=== PATIENT | male | born 1960 | race African-American/Black ===

== ENCOUNTER 2017-08-30 09:30 | Inpatient (IN) ==
[2017-08-30] MEDS ORDERED: HYDROmorphone 2 MG/1 ML VIAL IV STA ×2 (09:54→11:05)
[2017-08-30] MEDS ORDERED: ONDANSETRON 4 MG/2 ML VIAL IV STA (09:54)
[2017-08-30] MEDS ORDERED: ONDANSETRON 4 MG/2 ML VIAL ONE (10:00)
[2017-08-30] MEDS ORDERED: HYDROmorphone 2 MG/1 ML VIAL ONE (10:01)
[2017-08-30] MEDS: SODIUM CHLORIDE 0.9% 1,000 ML IV SCH ×4 (10:04→21:52)
[2017-08-30 10:35] LABS: Basophils % 0.3 % (0.0-0.8); Eosinophils % 0.3 % (0.00-10.9); Hematocrit 27.2 VOL% (42.0-52.0); Hemoglobin 7.9 GM/DL (14.0-18.0); Immature Granulocytes % 0.9 %; Immature Granulocytes Absolute 0.07 #; Lymphocytes # 1.8 10*3/uL (1.4-4.0); Lymphocytes % 22.7 % (21.2-54.2); Mean Corpuscular Hemoglobin 26 PG (27-34); Mean Corpuscular Volume 88.3 FL (87-102); Monocytes # 0.4 10*3/uL (0.11-0.8); Monocytes % 5.6 % (1.7-12.7); NRBC # 0.02 10*3/uL; Neutrophils # 5.5 10*3/uL (1.4-7.4); Neutrophils % 70.2 % (38.7-73.9); Platelet Count 367 T/CUMM (130-400); Red Blood Count 3.08 MC/CUMM (3.8-5.5); White Blood Count 7.8 T/CUMM (4-12)
[2017-08-30 10:42] LABS: PT Patient Result 10.5 SECS; Partial Thromboplastin Time 22.5 SECS (0-40)
[2017-08-30 10:49] LABS: Apearance,Urine CLEAR (Clear); Bilirubin,Urine Negative (Negative); Blood, Urine Small mg/dL (Negative); Glucose,Urine (UA) 50 mg/dL (Negative); Ketones,Urine Negative (Negative); Mucus,Urine Occasional /LPF (Occasional); Nitrite,Urine Negative (Negative); Protein,Urine >=500 MG/DL; RBC,Urine 5 /HPF (0-4); Urine Color Yellow (Yellow); Urine Specific Gravity 1.023 (1.001-1.035); WBC,Urine 1 /HPF (0-6)
[2017-08-30 11:02] LABS: Hypochromasia 1+; Microcytosis 1+; Spherocytes Slight
[2017-08-30 11:03] LABS: Platelet Estimate Normal
[2017-08-30 11:04] LABS: Albumin 1.9 G/DL (3.4-5.0); Bilirubin,Total 0.4 MG/DL (0.2-1.0); Calcium 8.7 MG/DL (8.5-10.1); Potassium 3.9 MMOL/L (3.5-5.1); Total Protein 10.7 G/DL (6.4-8.3)
[2017-08-30] MEDS ORDERED: MAGNESIUM HYDROXIDE SUSP 30 ML UDCUP PO PRN ×2 (12:41→18:09)
[2017-08-30] MEDS ORDERED: DOCUSATE SODIUM 100 MG CAPSULE PO PRN (12:49)
[2017-08-30] MEDS ORDERED: ACETAMINOPHEN 325 MG TABLET PO PRN ×2 (12:49)
[2017-08-30] MEDS ORDERED: MORPHINE 2 MG/1 ML SYRINGE IV PRN (12:49)
[2017-08-30] MEDS ORDERED: guaiFENesin/DM ER 600-30 MG TABLET PO PRN (12:49)
[2017-08-30] MEDS ORDERED: ONDANSETRON 4 MG/2 ML VIAL IV PRN ×2 (12:49→20:24)
[2017-08-30] MEDS ORDERED: diphenhydrAMINE CAP 25 MG CAPSULE PO PRN (12:49)
[2017-08-30] MEDS ORDERED: GLUCAGON 1 MG VIAL IM PRN (13:02)
[2017-08-30] MEDS ORDERED: DEXTROSE 50% 25 GM/50 ML VIAL IV PRN (13:02)
[2017-08-30] MEDS: PANTOPRAZOLE 40 MG TABLET PO SCH (13:35)
[2017-08-30] MEDS ORDERED: ceFAZolin 2,000 MG in PREMIX 1 EACH IV ONE (15:00)
[2017-08-30 16:30] LABS: Total Protein 10.4 G/DL (6.4-8.3)
[2017-08-30 16:33] LABS: Immunoglobulin A < 31 MG/DL (70-400); Immunoglobulin G 5360 MG/DL (700-1600); Immunoglobulin M < 21 MG/DL (40-230)
[2017-08-30] MEDS: INSULIN LISPRO 100 UNIT/ML SUBCUT SCH (17:49)
[2017-08-30] MEDS ORDERED: PROMETHAZINE 25 MG/1 ML VIAL IM PRN (18:09)
[2017-08-30] MEDS ORDERED: BISACODYL 10 MG SUPP RECTAL PRN (18:09)
[2017-08-30] MEDS ORDERED: LACTULOSE 20 GM/30 ML UDCUP PO PRN (18:09)
[2017-08-30] MEDS ORDERED: MORPHINE 10 MG/1 ML VIAL IV PRN (18:15)
[2017-08-30] MEDS ORDERED: ceFAZolin 1,000 MG VIAL ONE (18:28)
[2017-08-30] MEDS ORDERED: SODIUM CHLORIDE 0.9% 1,000 ML IV PRN ×2 (19:42→22:59)
[2017-08-30] MEDS ORDERED: ROCURONIUM 100 MG/10 ML VIAL IV ONE (20:11)
[2017-08-30] MEDS ORDERED: SEVOFLURANE 1 UNIT/15 MINUTE INH ONE (20:11)
[2017-08-30] MEDS ORDERED: MIDAZOLAM 2 MG/2 ML VIAL ONE (20:11)
[2017-08-30] MEDS ORDERED: PHENYLEPHRINE 10 MG/1 ML VIAL IV ONE (20:11)
[2017-08-30] MEDS ORDERED: PROPOFOL 200 MG/20 ML VIAL IV ONE (20:11)
[2017-08-30] MEDS: HYDROmorphone 2 MG/1 ML VIAL IV PRN ×2 (20:28→20:37)
[2017-08-30] MEDS: ceFAZolin 1,000 MG in SYRINGE 1 EACH IV SCH (23:24)
[2017-08-31] MEDS: SODIUM CHLORIDE 0.9% 1,000 ML IV SCH ×5 (00:37→22:50)
[2017-08-31] MEDS: MORPHINE 2 MG/1 ML SYRINGE IV PRN ×2 (04:19→21:03)
[2017-08-31 08:26] LABS: Basophils % 0.2 % (0.0-0.8); Eosinophils % 0.2 % (0.00-10.9); Hematocrit 23.1 VOL% (42.0-52.0); Hemoglobin 7.1 GM/DL (14.0-18.0); Immature Granulocytes % 0.5 %; Immature Granulocytes Absolute 0.03 #; Lymphocytes # 0.9 10*3/uL (1.4-4.0); Mean Corpuscular HGB Conc 30.7 GM/DL (32-36); Mean Corpuscular Hemoglobin 25 PG (27-34); Mean Corpuscular Volume 81.9 FL (87-102); Mean Platelet Volume 9.2 FL (9.6-12.0); Monocytes # 0.5 10*3/uL (0.11-0.8); Monocytes % 7.4 % (1.7-12.7); NRBC # 0.03 10*3/uL; Neutrophils # 4.7 10*3/uL (1.4-7.4); Neutrophils % 77.7 % (38.7-73.9); Platelet Count 282 T/CUMM (130-400); Red Blood Count 2.82 MC/CUMM (3.8-5.5); Red Cell Distribution Width 24.8 % (9.3-17.3); White Blood Count 6.1 T/CUMM (4-12)
[2017-08-31 08:35] LABS: Immunoglobulin A (Chem) < 31 MG/DL (70-400); Immunoglobulin G (Chem) 5360 MG/DL (700-1600); Immunoglobulin M (Chem) < 21 MG/DL (40-230); Total Protein (Chem) 10.4 G/DL (6.4-8.3)
[2017-08-31 08:47] LABS: Calcium 8.2 MG/DL (8.5-10.1); Osmolality,Calculated 282.7 MOS/KG (273-304); Potassium 3.9 MMOL/L (3.5-5.1); Risk Ratio 5.61; Thyroid Stimulating Hormone 1.74 uIU/ml (0.358-3.74); VLDL CHOLESTEROL 35.6 MG/DL
[2017-08-31 09:04] LABS: Giant Platelets Few; Hypochromasia 1+; Lymphocytes 15 % (20-55); Microcytosis 1+; Nucleated Red Blood Cells 2 (0-5); Ovalocytes Slight; Platelet Estimate Adequate; Segmented Neutrophils 80 % (50-85); Total Cells Counted 100
[2017-08-31] MEDS: INSULIN LISPRO 100 UNIT/ML SUBCUT SCH ×2 (09:04→16:28)
[2017-08-31] MEDS: PANTOPRAZOLE 40 MG TABLET PO SCH (09:05)
[2017-08-31] MEDS: ceFAZolin 1,000 MG in SYRINGE 1 EACH IV SCH ×2 (09:07→17:32)
[2017-08-31] MEDS ORDERED: SODIUM CHLORIDE 0.9% 1,000 ML IV PRN (09:12)
[2017-08-31] MEDS ORDERED: MAGNESIUM SULF RIDER 2 GM in PREMIX 1 EACH IV ONE (09:12)
[2017-08-31 11:10] LABS: Immuno Free Light Chain Lambda 0.86 MG/DL (0.57-2.63); Immuno Free Light Chain Ratio 212.79 MG/DL (0.26-1.65)
[2017-08-31 11:15] LABS: Albumin (SPE) 2.4 G/DL (3.2-5.3); Albumin (SPE) Rel % 23.5 %; Alpha 1 (SPE) 0.5 G/DL (0.1-0.4); Alpha 1 (SPE) Rel % 4.4 %; Alpha 2 (SPE) 1.3 G/DL (0.4-1.0); Alpha 2 (SPE) Rel % 12.3 %; Beta (SPE) 1.2 G/DL (0.5-1.1); Beta (SPE) Rel % 11.5 %; Gamma (SPE) Rel % 48.3 %
[2017-08-31] MEDS ORDERED: ERGOCALCIFEROL 50,000 UNIT CAPSULE PO SCH (17:30)
[2017-08-31] MEDS: DUTASTERIDE 0.5 MG CAPSULE PO SCH (17:32)
[2017-08-31] MEDS: TAMSULOSIN 0.4 MG CAPSULE PO SCH (21:04)
[2017-09-01 07:38] LABS: Basophils % 0.1 % (0.0-0.8); Eosinophils % 0.4 % (0.00-10.9); Hematocrit 27.6 VOL% (42.0-52.0); Hemoglobin 8.5 GM/DL (14.0-18.0); Immature Granulocytes % 0.5 %; Immature Granulocytes Absolute 0.04 #; Lymphocytes # 1.1 10*3/uL (1.4-4.0); Lymphocytes % 14.2 % (21.2-54.2); Mean Corpuscular HGB Conc 30.8 GM/DL (32-36); Mean Corpuscular Hemoglobin 26 PG (27-34); Mean Corpuscular Volume 83.1 FL (87-102); Mean Platelet Volume 9.3 FL (9.6-12.0); Monocytes # 0.6 10*3/uL (0.11-0.8); Monocytes % 7.6 % (1.7-12.7); NRBC # 0.03 10*3/uL; Neutrophils # 5.8 10*3/uL (1.4-7.4); Neutrophils % 77.2 % (38.7-73.9); Platelet Count 288 T/CUMM (130-400); Red Blood Count 3.32 MC/CUMM (3.8-5.5); Red Cell Distribution Width 21.9 % (9.3-17.3); White Blood Count 7.5 T/CUMM (4-12)
[2017-09-01] MEDS: DUTASTERIDE 0.5 MG CAPSULE PO SCH (09:28)
[2017-09-01] MEDS: PANTOPRAZOLE 40 MG TABLET PO SCH (09:28)
[2017-09-01] MEDS: INSULIN LISPRO 100 UNIT/ML SUBCUT SCH ×2 (09:28→18:39)
[2017-09-01] MEDS ORDERED: TUBERCULIN SKIN TEST 0.1 ML SYRINGE INTRADERM ONE (19:27)
[2017-09-01] MEDS: TAMSULOSIN 0.4 MG CAPSULE PO SCH (21:25)
[2017-09-02 02:53] LABS: Basophils % 0.1 % (0.0-0.8); Eosinophils % 0.1 % (0.00-10.9); Hematocrit 26.4 VOL% (42.0-52.0); Hemoglobin 8.8 GM/DL (14.0-18.0); Immature Granulocytes % 0.9 %; Immature Granulocytes Absolute 0.07 #; Lymphocytes # 0.8 10*3/uL (1.4-4.0); Lymphocytes % 11.2 % (21.2-54.2); Mean Corpuscular HGB Conc 33.3 GM/DL (32-36); Mean Corpuscular Hemoglobin 27 PG (27-34); Mean Corpuscular Volume 79.5 FL (87-102); Mean Platelet Volume 9.4 FL (9.6-12.0); Monocytes # 0.6 10*3/uL (0.11-0.8); Monocytes % 7.9 % (1.7-12.7); NRBC # 0.07 10*3/uL; Neutrophils % 79.8 % (38.7-73.9); Platelet Count 279 T/CUMM (130-400); Red Blood Count 3.32 MC/CUMM (3.8-5.5); White Blood Count 7.5 T/CUMM (4-12)
[2017-09-02 04:13] LABS: Calcium 8.1 MG/DL (8.5-10.1); Osmolality,Calculated 272.2 MOS/KG (273-304); Potassium 3.2 MMOL/L (3.5-5.1)
[2017-09-02] MEDS: INSULIN LISPRO 100 UNIT/ML SUBCUT SCH ×2 (08:55→17:15)
[2017-09-02] MEDS: DUTASTERIDE 0.5 MG CAPSULE PO SCH (08:55)
[2017-09-02] MEDS: PANTOPRAZOLE 40 MG TABLET PO SCH (08:55)
[2017-09-02] MEDS: SODIUM CHLORIDE 0.9% 1,000 ML IV SCH (17:16)
[2017-09-02] MEDS: TAMSULOSIN 0.4 MG CAPSULE PO SCH (21:43)
[2017-09-03] MEDS: SODIUM CHLORIDE 0.9% 1,000 ML IV SCH (03:42)
[2017-09-03 03:51] LABS: Basophils % 0.1 % (0.0-0.8); Eosinophils # 0.1 10*3/uL (0.0-0.87); Eosinophils % 0.8 % (0.00-10.9); Hematocrit 25.9 VOL% (42.0-52.0); Hemoglobin 8.1 GM/DL (14.0-18.0); Immature Granulocytes % 1.4 %; Lymphocytes % 14.1 % (21.2-54.2); Mean Corpuscular HGB Conc 31.3 GM/DL (32-36); Mean Corpuscular Hemoglobin 26 PG (27-34); Mean Corpuscular Volume 81.7 FL (87-102); Mean Platelet Volume 9.4 FL (9.6-12.0); Monocytes # 0.7 10*3/uL (0.11-0.8); Monocytes % 9.7 % (1.7-12.7); NRBC # 0.08 10*3/uL; Neutrophils # 5.3 10*3/uL (1.4-7.4); Neutrophils % 73.9 % (38.7-73.9); Platelet Count 282 T/CUMM (130-400); Red Blood Count 3.17 MC/CUMM (3.8-5.5); Red Cell Distribution Width 20.6 % (9.3-17.3); White Blood Count 7.2 T/CUMM (4-12)
[2017-09-03 04:27] LABS: Calcium 8.2 MG/DL (8.5-10.1); Osmolality,Calculated 274.1 MOS/KG (273-304)
[2017-09-03] MEDS ORDERED: POTASSIUM CHLORIDE 20 MEQ TABLET PO PRN ×2 (05:02→05:08)
[2017-09-03] MEDS: POTASSIUM CHLORIDE 20 MEQ TABLET PO PRN ×5 (05:16→22:21)
[2017-09-03] MEDS: PANTOPRAZOLE 40 MG TABLET PO SCH (08:41)
[2017-09-03] MEDS: INSULIN LISPRO 100 UNIT/ML SUBCUT SCH ×2 (08:41→17:32)
[2017-09-03] MEDS: DUTASTERIDE 0.5 MG CAPSULE PO SCH (08:41)
[2017-09-03] MEDS: TAMSULOSIN 0.4 MG CAPSULE PO SCH (22:21)
[2017-09-04 05:11] LABS: Basophils % 0.3 % (0.0-0.8); Eosinophils # 0.1 10*3/uL (0.0-0.87); Eosinophils % 1.2 % (0.00-10.9); Hematocrit 26.1 VOL% (42.0-52.0); Hemoglobin 8.1 GM/DL (14.0-18.0); Immature Granulocytes % 1.2 %; Immature Granulocytes Absolute 0.08 #; Lymphocytes # 1.1 10*3/uL (1.4-4.0); Lymphocytes % 17.3 % (21.2-54.2); Mean Corpuscular Hemoglobin 26 PG (27-34); Mean Corpuscular Volume 83.7 FL (87-102); Mean Platelet Volume 9.3 FL (9.6-12.0); Monocytes # 0.7 10*3/uL (0.11-0.8); Monocytes % 10.8 % (1.7-12.7); NRBC # 0.07 10*3/uL; Neutrophils # 4.5 10*3/uL (1.4-7.4); Neutrophils % 69.2 % (38.7-73.9); Platelet Count 300 T/CUMM (130-400); Red Blood Count 3.12 MC/CUMM (3.8-5.5); Red Cell Distribution Width 20.5 % (9.3-17.3); White Blood Count 6.5 T/CUMM (4-12)
[2017-09-04 06:03] LABS: Calcium 7.9 MG/DL (8.5-10.1); Osmolality,Calculated 273.1 MOS/KG (273-304); Potassium 3.4 MMOL/L (3.5-5.1)
[2017-09-04] MEDS: INSULIN LISPRO 100 UNIT/ML SUBCUT SCH (10:13)
[2017-09-04] MEDS: PANTOPRAZOLE 40 MG TABLET PO SCH (10:14)
[2017-09-04 11:17] VITALS: BP 142/80
== END 2017-09-04 11:45 | disposition swing bed (61) | DRG 481 ==
LOC: EDUNIT# → EDBD → N.ED 09:30 → N.EDINP 11:15 → SUATTDRO 11:15 → N.3E 12:20
PROVIDERS: ADMIT Orthopaedic Surgery; ATTEND Internal Medicine Infectious Disease

== ENCOUNTER 2017-09-28 19:22 | Inpatient (IN) ==
[2017-09-28] MEDS ORDERED: PANTOPRAZOLE 40 MG VIAL IV STA (20:00)
[2017-09-28] MEDS ORDERED: SODIUM CHLORIDE 0.9% 500 ML IV STA (20:00)
[2017-09-28] MEDS ORDERED: ONDANSETRON 4 MG/2 ML VIAL IV STA (20:00)
[2017-09-28] MEDS ORDERED: PANTOPRAZOLE 40 MG VIAL IV ONE (20:13)
[2017-09-28] MEDS ORDERED: ONDANSETRON 4 MG/2 ML VIAL ONE (20:13)
[2017-09-28 20:16] LABS: Basophils % 0.2 % (0.0-0.8); Eosinophils # 0.1 10*3/uL (0.0-0.87); Eosinophils % 1.7 % (0.00-10.9); Hematocrit 28.8 VOL% (42.0-52.0); Hemoglobin 8.7 GM/DL (14.0-18.0); Immature Granulocytes % 0.4 %; Immature Granulocytes Absolute 0.02 #; Lymphocytes # 1.5 10*3/uL (1.4-4.0); Lymphocytes % 32.1 % (21.2-54.2); Mean Corpuscular HGB Conc 30.2 GM/DL (32-36); Mean Corpuscular Hemoglobin 25 PG (27-34); Mean Corpuscular Volume 83.7 FL (87-102); Mean Platelet Volume 9.7 FL (9.6-12.0); Monocytes # 0.3 10*3/uL (0.11-0.8); Monocytes % 6.9 % (1.7-12.7); Neutrophils # 2.7 10*3/uL (1.4-7.4); Neutrophils % 58.7 % (38.7-73.9); Platelet Count 236 T/CUMM (130-400); Red Blood Count 3.44 MC/CUMM (3.8-5.5); White Blood Count 4.6 T/CUMM (4-12)
[2017-09-28 20:25] LABS: INR 1.1; PT Patient Result 11.4 SECS
[2017-09-28 20:48] LABS: Alanine Aminotransferase 13 U/L (16-61); Albumin 2.2 G/DL (3.4-5.0); Alkaline Phosphatase 131 U/L (45-117); Aspartate Amino Transferase 14 U/L (0-37); Blood Urea Nitrogen 71 MG/DL (7-18); Calcium 13.1 MG/DL (8.5-10.1); Glucose 100 MG/DL (74-106); Osmolality,Calculated 280.8 MOS/KG (273-304); Potassium 3.9 MMOL/L (3.5-5.1); Sodium 130 MMOL/L (136-145); Total Protein 12.9 G/DL (6.4-8.3); Troponin I Only < 0.015 NG/ML (0.00-0.045)
[2017-09-28] MEDS ORDERED: ONDANSETRON 4 MG/2 ML VIAL IV PRN (22:31)
[2017-09-28] MEDS ORDERED: DEXTROSE 50% 25 GM/50 ML VIAL IV PRN (23:22)
[2017-09-28] MEDS ORDERED: GLUCAGON 1 MG VIAL IM PRN (23:22)
[2017-09-29] MEDS: SODIUM CHLORIDE 0.9% 1,000 ML IV SCH ×3 (00:35→23:48)
[2017-09-29] MEDS ORDERED: ZIPRASIDONE 20 MG/1 ML VIAL IM ONE (01:09)
[2017-09-29 05:06] LABS: Basophils % 0.2 % (0.0-0.8); Eosinophils # 0.1 10*3/uL (0.0-0.87); Eosinophils % 1.5 % (0.00-10.9); Hematocrit 22.6 VOL% (42.0-52.0); Hemoglobin 7.1 GM/DL (14.0-18.0); Immature Granulocytes % 0.7 %; Immature Granulocytes Absolute 0.04 #; Lymphocytes # 1.4 10*3/uL (1.4-4.0); Lymphocytes % 24.2 % (21.2-54.2); Mean Corpuscular HGB Conc 31.4 GM/DL (32-36); Mean Corpuscular Hemoglobin 26 PG (27-34); Mean Corpuscular Volume 81.3 FL (87-102); Mean Platelet Volume 9.1 FL (9.6-12.0); Monocytes # 0.5 10*3/uL (0.11-0.8); Monocytes % 7.6 % (1.7-12.7); Neutrophils # 3.9 10*3/uL (1.4-7.4); Neutrophils % 65.8 % (38.7-73.9); Platelet Count 223 T/CUMM (130-400); Red Blood Count 2.78 MC/CUMM (3.8-5.5); Red Cell Distribution Width 19.9 % (9.3-17.3); White Blood Count 5.9 T/CUMM (4-12)
[2017-09-29] MEDS ORDERED: SODIUM CHLORIDE 0.9% 1,000 ML IV PRN (05:33)
[2017-09-29 06:05] LABS: Calcium 12.8 MG/DL (8.5-10.1); Osmolality,Calculated 285.2 MOS/KG (273-304); Potassium 3.1 MMOL/L (3.5-5.1)
[2017-09-29] MEDS: POTASSIUM CHLORIDE 20 MEQ TABLET PO PRN ×3 (06:27→21:45)
[2017-09-29 11:32] LABS: Hematocrit 21.2 VOL% (42.0-52.0)
[2017-09-29 11:33] LABS: Hemoglobin 6.6 GM/DL (14.0-18.0)
[2017-09-29] MEDS: INSULIN LISPRO 100 UNIT/ML SUBCUT SCH ×3 (17:43→23:48)
[2017-09-30] MEDS: POTASSIUM CHLORIDE 20 MEQ TABLET PO PRN (00:34)
[2017-09-30 06:56] LABS: Calcium 12.3 MG/DL (8.5-10.1); Osmolality,Calculated 289.7 MOS/KG (273-304)
[2017-09-30] MEDS: INSULIN LISPRO 100 UNIT/ML SUBCUT SCH ×4 (07:00→22:13)
[2017-09-30 09:27] LABS: Hematocrit 23.6 VOL% (42.0-52.0); Hemoglobin 7.2 GM/DL (14.0-18.0)
[2017-09-30] MEDS ORDERED: SODIUM CHLORIDE 0.9% 1,000 ML IV PRN (09:36)
[2017-09-30] MEDS ORDERED: ZOLEDRONIC ACID 4 MG in PREMIX 1 EACH IV ONE (10:13)
[2017-09-30] MEDS: FUROSEMIDE 40 MG/4 ML VIAL IV SCH (10:38)
[2017-09-30] MEDS: SODIUM CHLORIDE 0.9% 1,000 ML IV SCH ×2 (10:41→19:11)
[2017-09-30] MEDS ORDERED: ZOLEDRONIC ACID IV ONE ×2 (12:00)
[2017-09-30] MEDS ORDERED: SODIUM CHLORIDE 0.9% IV ONE (12:00)
[2017-09-30 19:58] LABS: Hematocrit 29.6 VOL% (42.0-52.0); Hemoglobin 9.3 GM/DL (14.0-18.0)
[2017-10-01] MEDS: SODIUM CHLORIDE 0.9% 1,000 ML IV SCH ×6 (01:52→22:06)
[2017-10-01 07:04] LABS: Basophils % 0.2 % (0.0-0.8); Eosinophils # 0.1 10*3/uL (0.0-0.87); Eosinophils % 2.1 % (0.00-10.9); Hematocrit 31.4 VOL% (42.0-52.0); Hemoglobin 9.8 GM/DL (14.0-18.0); Immature Granulocytes % 0.5 %; Immature Granulocytes Absolute 0.02 #; Lymphocytes # 1.4 10*3/uL (1.4-4.0); Lymphocytes % 30.8 % (21.2-54.2); Mean Corpuscular HGB Conc 31.2 GM/DL (32-36); Mean Corpuscular Hemoglobin 26 PG (27-34); Mean Corpuscular Volume 84.6 FL (87-102); Mean Platelet Volume 10.9 FL (9.6-12.0); Monocytes # 0.4 10*3/uL (0.11-0.8); Monocytes % 8.7 % (1.7-12.7); Neutrophils # 2.5 10*3/uL (1.4-7.4); Neutrophils % 57.7 % (38.7-73.9); Platelet Count 289 T/CUMM (130-400); Red Blood Count 3.71 MC/CUMM (3.8-5.5); White Blood Count 4.4 T/CUMM (4-12)
[2017-10-01] MEDS: INSULIN LISPRO 100 UNIT/ML SUBCUT SCH ×4 (09:22→21:49)
[2017-10-01] MEDS: FUROSEMIDE 40 MG/4 ML VIAL IV SCH (09:30)
[2017-10-01 10:00] LABS: Calcium 11.9 MG/DL (8.5-10.1); Osmolality,Calculated 286.7 MOS/KG (273-304); Potassium 3.9 MMOL/L (3.5-5.1)
[2017-10-01] MEDS ORDERED: MAGNESIUM SULF RIDER 1 GM in PREMIX 1 EACH IV ONE (13:00)
[2017-10-02 07:01] LABS: Calcium 10.9 MG/DL (8.5-10.1); Osmolality,Calculated 285.5 MOS/KG (273-304); Potassium 3.9 MMOL/L (3.5-5.1)
[2017-10-02] MEDS: SODIUM CHLORIDE 0.9% 1,000 ML IV SCH ×3 (08:44→16:43)
[2017-10-02] MEDS: INSULIN LISPRO 100 UNIT/ML SUBCUT SCH ×4 (08:49→21:12)
[2017-10-02] MEDS ORDERED: MAGNESIUM SULF RIDER 4 GM in PREMIX 1 EACH IV PRN (10:11)
[2017-10-02] MEDS: MAGNESIUM SULF RIDER 2 GM in PREMIX 1 EACH IV PRN (11:28)
[2017-10-02] MEDS ORDERED: hydrALAZINE 20 MG/1 ML VIAL IV PRN (12:11)
[2017-10-02] MEDS: amLODIPine 10 MG TABLET PO SCH (13:29)
[2017-10-03 06:28] LABS: Calcium 10.1 MG/DL (8.5-10.1); Osmolality,Calculated 284.5 MOS/KG (273-304); Potassium 3.6 MMOL/L (3.5-5.1)
[2017-10-03] MEDS: SODIUM CHLORIDE 0.9% 1,000 ML IV SCH ×2 (08:57→13:11)
[2017-10-03] MEDS: INSULIN LISPRO 100 UNIT/ML SUBCUT SCH ×4 (08:57→20:58)
[2017-10-03] MEDS: amLODIPine 10 MG TABLET PO SCH (08:58)
[2017-10-04] MEDS: SODIUM CHLORIDE 0.9% 1,000 ML IV SCH ×3 (01:24→18:00)
[2017-10-04 06:19] LABS: Basophils % 0.2 % (0.0-0.8); Eosinophils # 0.1 10*3/uL (0.0-0.87); Eosinophils % 2.3 % (0.00-10.9); Hematocrit 28.4 VOL% (42.0-52.0); Hemoglobin 8.7 GM/DL (14.0-18.0); Immature Granulocytes % 1.1 %; Immature Granulocytes Absolute 0.05 #; Lymphocytes # 1.1 10*3/uL (1.4-4.0); Lymphocytes % 23.4 % (21.2-54.2); Mean Corpuscular HGB Conc 30.6 GM/DL (32-36); Mean Corpuscular Hemoglobin 26 PG (27-34); Mean Corpuscular Volume 86.1 FL (87-102); Mean Platelet Volume 9.8 FL (9.6-12.0); Monocytes # 0.4 10*3/uL (0.11-0.8); Monocytes % 8.1 % (1.7-12.7); Neutrophils # 3.1 10*3/uL (1.4-7.4); Neutrophils % 64.9 % (38.7-73.9); Platelet Count 204 T/CUMM (130-400); Red Cell Distribution Width 17.8 % (9.3-17.3); White Blood Count 4.7 T/CUMM (4-12)
[2017-10-04 06:56] LABS: Calcium 9.1 MG/DL (8.5-10.1); Osmolality,Calculated 280.7 MOS/KG (273-304); Potassium 3.2 MMOL/L (3.5-5.1)
[2017-10-04] MEDS: INSULIN LISPRO 100 UNIT/ML SUBCUT SCH ×4 (08:24→21:19)
[2017-10-04] MEDS: amLODIPine 10 MG TABLET PO SCH (09:51)
[2017-10-04] MEDS: POTASSIUM CHLORIDE 20 MEQ TABLET PO PRN ×4 (12:08→17:45)
[2017-10-05] MEDS: SODIUM CHLORIDE 0.9% 1,000 ML IV SCH ×2 (02:51→21:25)
[2017-10-05] MEDS: POTASSIUM CHLORIDE 20 MEQ TABLET PO PRN ×3 (07:50→21:32)
[2017-10-05] MEDS: amLODIPine 10 MG TABLET PO SCH ×2 (07:50→08:33)
[2017-10-05] MEDS: INSULIN LISPRO 100 UNIT/ML SUBCUT SCH ×4 (07:51→21:31)
[2017-10-05 08:17] LABS: Basophils % 0.2 % (0.0-0.8); Eosinophils # 0.1 10*3/uL (0.0-0.87); Hematocrit 30.5 VOL% (42.0-52.0); Hemoglobin 9.7 GM/DL (14.0-18.0); Immature Granulocytes % 0.4 %; Immature Granulocytes Absolute 0.02 #; Lymphocytes # 1.1 10*3/uL (1.4-4.0); Lymphocytes % 24.8 % (21.2-54.2); Mean Corpuscular HGB Conc 31.8 GM/DL (32-36); Mean Corpuscular Hemoglobin 26 PG (27-34); Mean Corpuscular Volume 83.1 FL (87-102); Mean Platelet Volume 9.4 FL (9.6-12.0); Monocytes # 0.4 10*3/uL (0.11-0.8); Monocytes % 7.8 % (1.7-12.7); Neutrophils # 2.9 10*3/uL (1.4-7.4); Neutrophils % 64.8 % (38.7-73.9); Platelet Count 214 T/CUMM (130-400); Red Blood Count 3.67 MC/CUMM (3.8-5.5); Red Cell Distribution Width 17.6 % (9.3-17.3); White Blood Count 4.5 T/CUMM (4-12)
[2017-10-05 08:50] LABS: Calcium 8.5 MG/DL (8.5-10.1); Osmolality,Calculated 280.4 MOS/KG (273-304); Potassium 3.3 MMOL/L (3.5-5.1)
[2017-10-05] MEDS: MAGNESIUM SULF RIDER 2 GM in PREMIX 1 EACH IV PRN (18:56)
[2017-10-06 05:58] LABS: Basophils % 0.2 % (0.0-0.8); Eosinophils # 0.1 10*3/uL (0.0-0.87); Eosinophils % 1.8 % (0.00-10.9); Hemoglobin 8.9 GM/DL (14.0-18.0); Immature Granulocytes % 0.6 %; Immature Granulocytes Absolute 0.03 #; Lymphocytes # 1.3 10*3/uL (1.4-4.0); Lymphocytes % 25.3 % (21.2-54.2); Mean Corpuscular Hemoglobin 27 PG (27-34); Mean Corpuscular Volume 82.1 FL (87-102); Mean Platelet Volume 8.9 FL (9.6-12.0); Monocytes # 0.4 10*3/uL (0.11-0.8); Monocytes % 7.6 % (1.7-12.7); Neutrophils # 3.3 10*3/uL (1.4-7.4); Neutrophils % 64.5 % (38.7-73.9); Platelet Count 210 T/CUMM (130-400); Red Blood Count 3.29 MC/CUMM (3.8-5.5); Red Cell Distribution Width 17.5 % (9.3-17.3); White Blood Count 5.1 T/CUMM (4-12)
[2017-10-06] MEDS: SODIUM CHLORIDE 0.9% 1,000 ML IV SCH ×2 (06:11→16:57)
[2017-10-06 06:16] LABS: Calcium 8.7 MG/DL (8.5-10.1); Osmolality,Calculated 275.7 MOS/KG (273-304); Potassium 3.4 MMOL/L (3.5-5.1)
[2017-10-06] MEDS: INSULIN LISPRO 100 UNIT/ML SUBCUT SCH ×3 (07:35→16:57)
[2017-10-06] MEDS: POTASSIUM CHLORIDE 20 MEQ TABLET PO PRN ×3 (08:57→15:29)
[2017-10-06] MEDS: amLODIPine 10 MG TABLET PO SCH (08:57)
[2017-10-06 17:25] VITALS: BP 147/68
== END 2017-10-06 18:11 | DRG 683 ==
LOC: EDUNIT# → N.ED 19:22 → N.EDINP 22:31 → SUATTDRO 22:31 → N.5E 23:03 → N.TELES 23:15 → N.5E 09-29 17:20
PROVIDERS: ADMIT Internal Medicine Infectious Disease; ATTEND Internal Medicine

== ENCOUNTER 2019-08-07 13:54 | Inpatient (IN) ==
[2019-08-07 14:27] LABS: Basophils % 0.1 % (0.0-0.8); Hematocrit 21.3 VOL% (42.0-52.0); Hemoglobin 6.8 GM/DL (14.0-18.0); Immature Granulocytes % 0.7 %; Immature Granulocytes Absolute 0.08 #; Lymphocytes # 0.6 10*3/uL (1.4-4.0); Lymphocytes % 5.7 % (21.2-54.2); Mean Corpuscular HGB Conc 31.9 GM/DL (32-36); Mean Corpuscular Volume 84.2 FL (87-102); Mean Platelet Volume 10.8 FL (9.6-12.0); Monocytes % 5.7 % (1.7-12.7); Neutrophils % 87.8 % (38.7-73.9); Platelet Count 258 T/CUMM (130-400); Red Blood Count 2.53 MC/CUMM (3.8-5.5); Red Cell Distribution Width 16.4 % (9.3-17.3)
[2019-08-07 14:58] LABS: Albumin 2.5 G/DL (3.4-5.0); Bilirubin,Total 0.8 MG/DL (0.2-1.0); Calcium 8.2 MG/DL (8.5-10.1); Osmolality,Calculated 289.2 MOS/KG (273-304); Total Protein 8.2 G/DL (6.4-8.3)
[2019-08-07 15:17] LABS: Apearance,Urine CLOUDY (Clear); Bacteria,Urine Moderate /HPF (Few); Bilirubin,Urine Negative (Negative); Blood, Urine Moderate mg/dL (Negative); Glucose,Urine (UA) 50 mg/dL (Negative); Hyaline Casts,Urine 21 /LPF (0-3); Ketones,Urine Negative (Negative); Nitrite,Urine Negative (Negative); Protein,Urine 100 MG/DL; RBC,Urine 6 /HPF (0-4); Urine Color Amber (Yellow); Urine Specific Gravity 1.026 (1.001-1.035); Urine Urobilinogen < 2.0 EU/DL (0.2-1.0)
[2019-08-07] MEDS ORDERED: SODIUM CHLORIDE 0.9% 1,000 ML IV PRN (16:21)
[2019-08-07] MEDS ORDERED: ACETAMINOPHEN 325 MG TABLET PO PRN (16:21)
[2019-08-07] MEDS ORDERED: GLUCAGON 1 MG VIAL IM PRN (16:21)
[2019-08-07] MEDS ORDERED: DEXTROSE 10% 25 GM/250 ML BAG IV PRN (16:21)
[2019-08-07] MEDS ORDERED: ONDANSETRON 4 MG/2 ML VIAL IV PRN (16:21)
[2019-08-07] MEDS ORDERED: [UNRECOGNIZED DRUG - OTHER] PO SCH (16:45)
[2019-08-07] MEDS: SODIUM CHLORIDE 0.9% 1,000 ML IV SCH (18:26)
[2019-08-07] MEDS: INSULIN REGULAR 100 UNIT/ML SUBCUT SCH ×2 (18:27→20:38)
[2019-08-07] MEDS: POLYETHYLENE GLYCOL POWDER 17 GM PACK PO SCH (18:28)
[2019-08-07] MEDS: DULoxetine 30 MG CAPSULE PO SCH (20:38)
[2019-08-07] MEDS: CYCLOBENZAPRINE 10 MG TABLET PO SCH (20:38)
[2019-08-07] MEDS: DONEPEZIL 10 MG TABLET PO SCH (20:38)
[2019-08-07] MEDS: POLYVINYL ALCOHOL 1.4% OPH SOLN 15 ML BOTTLE BOTH EYES SCH (20:38)
[2019-08-07] MEDS: ATORVASTATIN 40 MG TABLET PO SCH (20:39)
[2019-08-07] MEDS: PEG PROPYLENE GLYCOL BOTH EYES SCH (20:39)
[2019-08-08] MEDS: SODIUM CHLORIDE 0.9% 1,000 ML IV SCH (04:14)
[2019-08-08 07:59] LABS: Basophils % 0.1 % (0.0-0.8); Eosinophils % 0.1 % (0.00-10.9); Hematocrit 27.5 VOL% (42.0-52.0); Immature Granulocytes % 1.1 %; Immature Granulocytes Absolute 0.12 #; Lymphocytes # 0.6 10*3/uL (1.4-4.0); Lymphocytes % 5.3 % (21.2-54.2); Mean Corpuscular HGB Conc 32.4 GM/DL (32-36); Mean Corpuscular Volume 84.9 FL (87-102); Mean Platelet Volume 11.1 FL (9.6-12.0); Monocytes % 6.6 % (1.7-12.7); Neutrophils % 86.8 % (38.7-73.9); Platelet Count 230 T/CUMM (130-400); Red Cell Distribution Width 15.9 % (9.3-17.3); White Blood Count 10.9 T/CUMM (4-12)
[2019-08-08 08:05] LABS: Hemoglobin 8.9 GM/DL (14.0-18.0); Red Blood Count 3.24 MC/CUMM (3.8-5.5)
[2019-08-08 08:23] LABS: Band Neutrophils 1 % (0-10); Hypochromasia 1+; Lymphocytes 5 % (20-55); Microcytosis 1+; Myelocytes 1 %; Platelet Estimate Normal; Segmented Neutrophils 85 % (50-85); Total Cells Counted 100
[2019-08-08 08:26] LABS: Albumin 2.3 G/DL (3.4-5.0); Bilirubin,Total 0.7 MG/DL (0.2-1.0); Calcium 7.9 MG/DL (8.5-10.1); Osmolality,Calculated 292.9 MOS/KG (273-304); Total Protein 7.7 G/DL (6.4-8.3)
[2019-08-08] MEDS ORDERED: VANCOMYCIN INJ 1,000 MG in SODIUM CHLORIDE 0.9% 250 ML IV SCH (08:30)
[2019-08-08] MEDS: POLYVINYL ALCOHOL 1.4% OPH SOLN 15 ML BOTTLE BOTH EYES SCH ×3 (09:15→20:53)
[2019-08-08] MEDS: MEMANTINE 10 MG TABLET PO SCH (09:15)
[2019-08-08] MEDS: MULTIVITAMIN (CENTRUM) TABLET PO SCH (09:15)
[2019-08-08] MEDS: CETIRIZINE 10 MG TABLET PO SCH (09:15)
[2019-08-08] MEDS: PANTOPRAZOLE 40 MG TABLET PO SCH (09:15)
[2019-08-08] MEDS: TAMSULOSIN 0.4 MG CAPSULE PO SCH (09:15)
[2019-08-08] MEDS: PYRIDOXINE 100 MG TABLET PO SCH (09:16)
[2019-08-08] MEDS: ASPIRIN 325 MG TABLET PO SCH (09:16)
[2019-08-08] MEDS: INSULIN REGULAR 100 UNIT/ML SUBCUT SCH ×4 (09:16→20:54)
[2019-08-08] MEDS: ERGOCALCIFEROL 50,000 UNIT CAPSULE PO SCH (09:16)
[2019-08-08] MEDS ORDERED: SODIUM CHLOR 0.9% KCL 20 MEQ 20 MEQ/1,000 ML BAG IV SCH (10:00)
[2019-08-08 10:50] LABS: Total Protein 7.6 G/DL (6.4-8.3)
[2019-08-08] MEDS: MEROPENEM 500 MG in SODIUM CHLORIDE 0.9% 100 ML IV SCH (11:03)
[2019-08-08 11:32] LABS: Immuno Free Light Chain Lambda 3.84 MG/DL (0.57-2.63); Immuno Free Light Chain Ratio 12.83 MG/DL (0.26-1.65)
[2019-08-08 11:33] LABS: Immuno Free Light Chain Kappa 49.28 MG/DL (0.33-1.94)
[2019-08-08] MEDS ORDERED: POTASSIUM CHLORIDE RIDER 10 MEQ in PREMIX 1 EACH IV PRN (12:54)
[2019-08-08] MEDS: POTASSIUM CHLORIDE RIDER 20 MEQ in PREMIX 1 EACH IV PRN ×2 (13:45→16:03)
[2019-08-08] MEDS: [UNRECOGNIZED DRUG - OTHER] IV SCH (16:45)
[2019-08-08] MEDS: SODIUM BICARB IV SCH (16:45)
[2019-08-08] MEDS: POTASSIUM CHLORIDE IV SCH (16:45)
[2019-08-08] MEDS: CYCLOBENZAPRINE 10 MG TABLET PO SCH (20:31)
[2019-08-08] MEDS: ATORVASTATIN 40 MG TABLET PO SCH (20:31)
[2019-08-08] MEDS: DULoxetine 30 MG CAPSULE PO SCH (20:31)
[2019-08-08] MEDS: DONEPEZIL 10 MG TABLET PO SCH (20:31)
[2019-08-08] MEDS: PEG PROPYLENE GLYCOL BOTH EYES SCH (20:54)
[2019-08-09] MEDS: POTASSIUM CHLORIDE IV SCH ×3 (03:05→17:29)
[2019-08-09] MEDS: SODIUM BICARB IV SCH ×3 (03:05→17:29)
[2019-08-09] MEDS: [UNRECOGNIZED DRUG - OTHER] IV SCH ×3 (03:05→17:29)
[2019-08-09 04:43] LABS: Basophils % 0.3 % (0.0-0.8); Eosinophils # 0.1 10*3/uL (0.0-0.87); Eosinophils % 0.9 % (0.00-10.9); Hematocrit 25.4 VOL% (42.0-52.0); Hemoglobin 8.2 GM/DL (14.0-18.0); Immature Granulocytes Absolute 0.15 #; Lymphocytes # 0.3 10*3/uL (1.4-4.0); Lymphocytes % 4.6 % (21.2-54.2); Mean Corpuscular HGB Conc 32.3 GM/DL (32-36); Mean Corpuscular Volume 86.1 FL (87-102); Mean Platelet Volume 11.6 FL (9.6-12.0); Monocytes % 9.4 % (1.7-12.7); Neutrophils % 82.8 % (38.7-73.9); Platelet Count 207 T/CUMM (130-400); Red Blood Count 2.95 MC/CUMM (3.8-5.5); Red Cell Distribution Width 16.1 % (9.3-17.3); White Blood Count 7.4 T/CUMM (4-12)
[2019-08-09 04:59] LABS: Calcium 7.5 MG/DL (8.5-10.1); Osmolality,Calculated 294.1 MOS/KG (273-304)
[2019-08-09 05:06] LABS: Eosinophils 3 % (0-10); Hypochromasia Slight; Lymphocytes 8 % (20-55); Microcytosis 1+; Platelet Estimate Normal; Segmented Neutrophils 81 % (50-85); Total Cells Counted 100
[2019-08-09 05:07] LABS: Anisocytosis Slight
[2019-08-09 05:45] LABS: Total Protein (Chem) 7.6 G/DL (6.4-8.3)
[2019-08-09 07:45] LABS: Albumin (SPE) 3.5 G/DL (3.2-5.3); Alpha 1 (SPE) 0.5 G/DL (0.1-0.4); Alpha 1 (SPE) Rel % 6.7 %; Alpha 2 (SPE) 1.2 G/DL (0.4-1.0); Beta (SPE) 1.2 G/DL (0.5-1.1); Beta (SPE) Rel % 15.7 %; Gamma (SPE) 1.2 G/DL (0.7-1.7)
[2019-08-09 07:51] LABS: Gamma (SPE) Rel % 15.6 %
[2019-08-09] MEDS: ASPIRIN 325 MG TABLET PO SCH (08:09)
[2019-08-09] MEDS: POLYETHYLENE GLYCOL POWDER 17 GM PACK PO SCH (08:09)
[2019-08-09] MEDS: PYRIDOXINE 100 MG TABLET PO SCH (08:09)
[2019-08-09] MEDS: MEMANTINE 10 MG TABLET PO SCH (08:09)
[2019-08-09] MEDS: TAMSULOSIN 0.4 MG CAPSULE PO SCH (08:09)
[2019-08-09] MEDS: PANTOPRAZOLE 40 MG TABLET PO SCH (08:09)
[2019-08-09] MEDS: CETIRIZINE 10 MG TABLET PO SCH (08:09)
[2019-08-09] MEDS: MULTIVITAMIN (CENTRUM) TABLET PO SCH (08:09)
[2019-08-09] MEDS: POLYVINYL ALCOHOL 1.4% OPH SOLN 15 ML BOTTLE BOTH EYES SCH ×3 (08:13→22:00)
[2019-08-09] MEDS: INSULIN REGULAR 100 UNIT/ML SUBCUT SCH ×4 (08:15→22:00)
[2019-08-09] MEDS: MEROPENEM 500 MG in SODIUM CHLORIDE 0.9% 100 ML IV SCH (09:28)
[2019-08-09] MEDS: POTASSIUM CHLORIDE 20 MEQ TABLET PO PRN (09:35)
[2019-08-09 12:48] LABS: Hepatitis B Core IgM Quant 0.07 Index; Hepatitis B Surface Ag Quant < 0.10 Index; Hepatitis B Surface Ag Result Negative (Negative); Hepatitis C Virus Ab Result Negative (Negative)
[2019-08-09] MEDS ORDERED: ceFAZolin 1,000 MG in SYRINGE 1 EACH IV ONE (13:20)
[2019-08-09] MEDS ORDERED: BUPIVACAINE MPF 0.25% 30 ML VIAL ONE (14:00)
[2019-08-09] MEDS ORDERED: LIDOCAINE 1%/EPI INJ 20 ML VIAL ONE (14:00)
[2019-08-09] MEDS ORDERED: HEPARIN 5,000 UNIT/1 ML VIAL ONE (14:00)
[2019-08-09] MEDS ORDERED: MIDAZOLAM 2 MG/2 ML VIAL ONE (15:32)
[2019-08-09] MEDS ORDERED: fentaNYL 100 MCG/2 ML VIAL ONE (15:32)
[2019-08-09] MEDS ORDERED: propofoL 200 MG/20 ML VIAL IV ONE (15:32)
[2019-08-09] MEDS ORDERED: LIDOCAINE 2% 5 ML VIAL ONE (15:32)
[2019-08-09] MEDS ORDERED: SODIUM CHLORIDE 0.9% 250 ML IV ONE (15:33)
[2019-08-09] MEDS ORDERED: PHENYLEPHRINE 1 MG/10 ML SYRINGE IV ONE (15:33)
[2019-08-09] MEDS: ATORVASTATIN 40 MG TABLET PO SCH (21:06)
[2019-08-09] MEDS: DULoxetine 30 MG CAPSULE PO SCH (21:06)
[2019-08-09] MEDS: CYCLOBENZAPRINE 10 MG TABLET PO SCH (21:06)
[2019-08-09] MEDS: DONEPEZIL 10 MG TABLET PO SCH (21:06)
[2019-08-10] MEDS: PEG PROPYLENE GLYCOL BOTH EYES SCH (01:13)
[2019-08-10 04:54] LABS: Basophils % 0.2 % (0.0-0.8); Eosinophils # 0.1 10*3/uL (0.0-0.87); Eosinophils % 0.9 % (0.00-10.9); Hematocrit 24.4 VOL% (42.0-52.0); Hemoglobin 7.6 GM/DL (14.0-18.0); Immature Granulocytes % 7.2 %; Immature Granulocytes Absolute 0.42 #; Lymphocytes # 0.3 10*3/uL (1.4-4.0); Mean Corpuscular HGB Conc 31.1 GM/DL (32-36); Mean Corpuscular Volume 89.1 FL (87-102); Mean Platelet Volume 10.7 FL (9.6-12.0); Neutrophils % 75.7 % (38.7-73.9); Platelet Count 148 T/CUMM (130-400); Red Blood Count 2.74 MC/CUMM (3.8-5.5); Red Cell Distribution Width 15.9 % (9.3-17.3); White Blood Count 5.8 T/CUMM (4-12)
[2019-08-10 05:13] LABS: Calcium 7.1 MG/DL (8.5-10.1); Osmolality,Calculated 290.1 MOS/KG (273-304)
[2019-08-10 06:27] LABS: Anisocytosis 1+; Band Neutrophils 3 % (0-10); Eosinophils 4 % (0-10); Lymphocytes 11 % (20-55); Metamyelocytes 1 %; Myelocytes 2 %; Nucleated Red Blood Cells 2 (0-5); Platelet Estimate Adequate; Segmented Neutrophils 73 % (50-85); Total Cells Counted 100
[2019-08-10] MEDS ORDERED: SODIUM CHLORIDE 0.9% 1,000 ML IV PRN (07:43)
[2019-08-10] MEDS: POLYVINYL ALCOHOL 1.4% OPH SOLN 15 ML BOTTLE BOTH EYES SCH ×3 (09:44→21:20)
[2019-08-10] MEDS: TAMSULOSIN 0.4 MG CAPSULE PO SCH (09:46)
[2019-08-10] MEDS: CETIRIZINE 10 MG TABLET PO SCH (09:46)
[2019-08-10] MEDS: MULTIVITAMIN (CENTRUM) TABLET PO SCH (09:46)
[2019-08-10] MEDS: MEMANTINE 10 MG TABLET PO SCH (09:46)
[2019-08-10] MEDS: PYRIDOXINE 100 MG TABLET PO SCH (09:46)
[2019-08-10] MEDS: POTASSIUM CHLORIDE 20 MEQ TABLET PO PRN ×3 (09:46→18:04)
[2019-08-10] MEDS: ASPIRIN 325 MG TABLET PO SCH (09:48)
[2019-08-10] MEDS: INSULIN REGULAR 100 UNIT/ML SUBCUT SCH ×4 (09:53→21:17)
[2019-08-10] MEDS: PANTOPRAZOLE 40 MG VIAL IV SCH ×2 (09:54→21:11)
[2019-08-10] MEDS: MEROPENEM 500 MG in SODIUM CHLORIDE 0.9% 100 ML IV SCH (09:56)
[2019-08-10] MEDS: SODIUM BICARB IV SCH (09:57)
[2019-08-10] MEDS: POTASSIUM CHLORIDE IV SCH (09:57)
[2019-08-10] MEDS: [UNRECOGNIZED DRUG - OTHER] IV SCH (09:57)
[2019-08-10] MEDS: SUCRALFATE 1 GM/10 ML UDCUP PO SCH ×3 (12:04→21:10)
[2019-08-10] MEDS ORDERED: HEPARIN 10,000 UNIT/10 ML VIAL IV SCH (13:00)
[2019-08-10] MEDS: CYCLOBENZAPRINE 10 MG TABLET PO SCH ×2 (15:45→21:11)
[2019-08-10] MEDS ORDERED: LEVOFLOXACIN INJ 500 MG in PREMIX 1 EACH IV ONE (17:27)
[2019-08-10 17:33] LABS: Basophils % 0.3 % (0.0-0.8); Eosinophils # 0.1 10*3/uL (0.0-0.87); Eosinophils % 0.6 % (0.00-10.9); Hematocrit 27.6 VOL% (42.0-52.0); Hemoglobin 9.1 GM/DL (14.0-18.0); Immature Granulocytes % 7.9 %; Immature Granulocytes Absolute 0.62 #; Lymphocytes # 0.3 10*3/uL (1.4-4.0); Lymphocytes % 3.6 % (21.2-54.2); Mean Corpuscular Volume 84.7 FL (87-102); Mean Platelet Volume 11.7 FL (9.6-12.0); NRBC # 0.02 10*3/uL; Neutrophils % 76.6 % (38.7-73.9); Platelet Count 171 T/CUMM (130-400); Red Blood Count 3.26 MC/CUMM (3.8-5.5); Red Cell Distribution Width 15.3 % (9.3-17.3); White Blood Count 7.9 T/CUMM (4-12)
[2019-08-10 18:12] LABS: Band Neutrophils 1 % (0-10); Eosinophils 2 % (0-10); Lymphocytes 4 % (20-55); Metamyelocytes 2 %; Myelocytes 6 %; Segmented Neutrophils 75 % (50-85); Total Cells Counted 100
[2019-08-10 18:13] LABS: Platelet Estimate Normal
[2019-08-10 18:14] LABS: Burr Cells 3+; Hypochromasia 1+; Microcytosis 1+; Polychromasia 1+
[2019-08-10] MEDS: DULoxetine 30 MG CAPSULE PO SCH (21:11)
[2019-08-10] MEDS: ATORVASTATIN 40 MG TABLET PO SCH (22:38)
[2019-08-11 03:43] LABS: Basophils % 0.5 % (0.0-0.8); Eosinophils % 0.4 % (0.00-10.9); Hematocrit 26.2 VOL% (42.0-52.0); Hemoglobin 8.4 GM/DL (14.0-18.0); Immature Granulocytes % 9.3 %; Immature Granulocytes Absolute 0.52 #; Lymphocytes # 0.2 10*3/uL (1.4-4.0); Lymphocytes % 4.3 % (21.2-54.2); Mean Corpuscular HGB Conc 32.1 GM/DL (32-36); Mean Corpuscular Volume 86.2 FL (87-102); Monocytes % 14.4 % (1.7-12.7); NRBC # 0.02 10*3/uL; Neutrophils % 71.1 % (38.7-73.9); Platelet Count 150 T/CUMM (130-400); Red Blood Count 3.04 MC/CUMM (3.8-5.5); Red Cell Distribution Width 15.4 % (9.3-17.3); White Blood Count 5.6 T/CUMM (4-12)
[2019-08-11 04:08] LABS: Calcium 7.1 MG/DL (8.5-10.1); Osmolality,Calculated 285.8 MOS/KG (273-304)
[2019-08-11 04:23] LABS: Band Neutrophils 2 % (0-10); Eosinophils 1 % (0-10); Lymphocytes 6 % (20-55); Metamyelocytes 2 %; Myelocytes 2 %; Segmented Neutrophils 74 % (50-85); Total Cells Counted 100
[2019-08-11 04:24] LABS: Anisocytosis 1+
[2019-08-11 04:25] LABS: Ovalocytes Few; Platelet Estimate Normal
[2019-08-11] MEDS: MULTIVITAMIN (CENTRUM) TABLET PO SCH (09:37)
[2019-08-11] MEDS: ASPIRIN 325 MG TABLET PO SCH (09:37)
[2019-08-11] MEDS: CETIRIZINE 10 MG TABLET PO SCH (09:37)
[2019-08-11] MEDS: MEROPENEM 500 MG in SODIUM CHLORIDE 0.9% 100 ML IV SCH (09:38)
[2019-08-11] MEDS: TAMSULOSIN 0.4 MG CAPSULE PO SCH (09:38)
[2019-08-11] MEDS: POTASSIUM CHLORIDE 20 MEQ TABLET PO PRN (09:38)
[2019-08-11] MEDS: INSULIN REGULAR 100 UNIT/ML SUBCUT SCH ×4 (09:38→22:51)
[2019-08-11] MEDS: MEMANTINE 10 MG TABLET PO SCH (09:38)
[2019-08-11] MEDS: POLYVINYL ALCOHOL 1.4% OPH SOLN 15 ML BOTTLE BOTH EYES SCH ×3 (09:39→21:28)
[2019-08-11] MEDS: SUCRALFATE 1 GM/10 ML UDCUP PO SCH ×5 (09:39→21:29)
[2019-08-11] MEDS: PANTOPRAZOLE 40 MG VIAL IV SCH ×2 (09:39→21:30)
[2019-08-11] MEDS: POTASSIUM CHLORIDE IV SCH (09:41)
[2019-08-11] MEDS: SODIUM BICARB IV SCH (09:41)
[2019-08-11] MEDS: [UNRECOGNIZED DRUG - OTHER] IV SCH (09:41)
[2019-08-11] MEDS: PYRIDOXINE 100 MG TABLET PO SCH (10:00)
[2019-08-11 20:47] LABS: Basophils % 0.3 % (0.0-0.8); Eosinophils % 0.4 % (0.00-10.9); Hematocrit 25.8 VOL% (42.0-52.0); Hemoglobin 8.5 GM/DL (14.0-18.0); Immature Granulocytes % 9.3 %; Immature Granulocytes Absolute 0.69 #; Lymphocytes # 0.4 10*3/uL (1.4-4.0); Lymphocytes % 5.7 % (21.2-54.2); Mean Corpuscular HGB Conc 32.9 GM/DL (32-36); Mean Corpuscular Volume 85.1 FL (87-102); Mean Platelet Volume 10.6 FL (9.6-12.0); Monocytes % 14.7 % (1.7-12.7); Neutrophils % 69.6 % (38.7-73.9); Platelet Count 138 T/CUMM (130-400); Red Blood Count 3.03 MC/CUMM (3.8-5.5); Red Cell Distribution Width 15.6 % (9.3-17.3); White Blood Count 7.4 T/CUMM (4-12)
[2019-08-11 21:11] LABS: Band Neutrophils 1 % (0-10); Lymphocytes 4 % (20-55); Segmented Neutrophils 81 % (50-85); Total Cells Counted 100
[2019-08-11 21:20] LABS: Giant Platelets Few; Platelet Estimate Adequate
[2019-08-11 21:23] LABS: PT Patient Result 11.3 SECS (9.6-12.2); Partial Thromboplastin Time 34.8 SECS (20.8-36.0)
[2019-08-11] MEDS: OXYMETAZOLINE 0.05% NASAL SPRAY 15 ML BOTTLE BOTH NARES PRN (21:27)
[2019-08-11] MEDS: SODIUM BICARBONATE 650 MG TABLET PO SCH (21:29)
[2019-08-11] MEDS: CYCLOBENZAPRINE 10 MG TABLET PO SCH (21:29)
[2019-08-11] MEDS: DULoxetine 30 MG CAPSULE PO SCH (21:29)
[2019-08-11] MEDS: ATORVASTATIN 40 MG TABLET PO SCH (22:52)
[2019-08-12] MEDS: PEG PROPYLENE GLYCOL BOTH EYES SCH ×3 (00:08→21:25)
[2019-08-12 05:10] LABS: Basophils % 0.4 % (0.0-0.8); Eosinophils % 0.3 % (0.00-10.9); Hematocrit 25.2 VOL% (42.0-52.0); Hemoglobin 8.2 GM/DL (14.0-18.0); Immature Granulocytes % 9.7 %; Immature Granulocytes Absolute 0.73 #; Lymphocytes # 0.4 10*3/uL (1.4-4.0); Lymphocytes % 5.9 % (21.2-54.2); Mean Corpuscular HGB Conc 32.5 GM/DL (32-36); Mean Platelet Volume 10.5 FL (9.6-12.0); Monocytes % 13.9 % (1.7-12.7); NRBC # 0.02 10*3/uL; Neutrophils % 69.8 % (38.7-73.9); Platelet Count 145 T/CUMM (130-400); Red Blood Count 2.93 MC/CUMM (3.8-5.5); Red Cell Distribution Width 15.8 % (9.3-17.3); White Blood Count 7.5 T/CUMM (4-12)
[2019-08-12 05:24] LABS: Calcium 7.3 MG/DL (8.5-10.1); Osmolality,Calculated 290.5 MOS/KG (273-304)
[2019-08-12 05:35] LABS: Band Neutrophils 5 % (0-10); Lymphocytes 3 % (20-55); Platelet Estimate Adequate; Segmented Neutrophils 77 % (50-85); Total Cells Counted 100
[2019-08-12 05:36] LABS: Hypochromasia 1+; Ovalocytes Slight
[2019-08-12] MEDS ORDERED: ceFAZolin 2,000 MG in PREMIX 1 EACH IV PRN (10:08)
[2019-08-12] MEDS ORDERED: SODIUM CHLORIDE 0.9% 1,000 ML IV SCH (11:30)
[2019-08-12] MEDS ORDERED: ceFAZolin 2,000 MG in PREMIX 1 EACH IV ONE (12:00)
[2019-08-12] MEDS: POLYETHYLENE GLYCOL POWDER 17 GM PACK PO SCH (13:28)
[2019-08-12] MEDS: PANTOPRAZOLE 40 MG VIAL IV SCH ×2 (13:28→21:25)
[2019-08-12] MEDS: TAMSULOSIN 0.4 MG CAPSULE PO SCH (13:28)
[2019-08-12] MEDS: SUCRALFATE 1 GM/10 ML UDCUP PO SCH ×4 (13:28→21:24)
[2019-08-12] MEDS: ASPIRIN 325 MG TABLET PO SCH (13:29)
[2019-08-12] MEDS: PYRIDOXINE 100 MG TABLET PO SCH (13:30)
[2019-08-12] MEDS: POLYVINYL ALCOHOL 1.4% OPH SOLN 15 ML BOTTLE BOTH EYES SCH ×3 (13:30→21:26)
[2019-08-12] MEDS: SODIUM BICARBONATE 650 MG TABLET PO SCH ×2 (13:30→21:25)
[2019-08-12] MEDS: MEMANTINE 10 MG TABLET PO SCH (13:30)
[2019-08-12] MEDS: CETIRIZINE 10 MG TABLET PO SCH (13:30)
[2019-08-12] MEDS: MULTIVITAMIN (CENTRUM) TABLET PO SCH (13:30)
[2019-08-12] MEDS: INSULIN REGULAR 100 UNIT/ML SUBCUT SCH ×4 (13:41→21:25)
[2019-08-12] MEDS ORDERED: LEVOFLOXACIN INJ 250 MG in PREMIX 1 EACH IV SCH (17:30)
[2019-08-12] MEDS: DULoxetine 30 MG CAPSULE PO SCH (21:24)
[2019-08-12] MEDS: CYCLOBENZAPRINE 10 MG TABLET PO SCH (21:24)
[2019-08-12] MEDS: ATORVASTATIN 40 MG TABLET PO SCH (21:24)
[2019-08-13 05:16] LABS: Basophils % 0.2 % (0.0-0.8); Eosinophils # 0.1 10*3/uL (0.0-0.87); Eosinophils % 0.6 % (0.00-10.9); Hematocrit 24.9 VOL% (42.0-52.0); Hemoglobin 8.1 GM/DL (14.0-18.0); Immature Granulocytes % 7.6 %; Immature Granulocytes Absolute 0.63 #; Lymphocytes # 0.4 10*3/uL (1.4-4.0); Lymphocytes % 4.9 % (21.2-54.2); Mean Corpuscular HGB Conc 32.5 GM/DL (32-36); Mean Platelet Volume 11.3 FL (9.6-12.0); Monocytes % 12.4 % (1.7-12.7); Neutrophils % 74.3 % (38.7-73.9); Platelet Count 161 T/CUMM (130-400); Red Blood Count 2.93 MC/CUMM (3.8-5.5); Red Cell Distribution Width 15.7 % (9.3-17.3); White Blood Count 8.3 T/CUMM (4-12)
[2019-08-13 05:29] LABS: Calcium 8.1 MG/DL (8.5-10.1); Osmolality,Calculated 285.1 MOS/KG (273-304)
[2019-08-13 05:39] LABS: Band Neutrophils 2 % (0-10); Eosinophils 2 % (0-10); Lymphocytes 2 % (20-55); Metamyelocytes 1 %; Myelocytes 1 %; Nucleated Red Blood Cells 1 (0-5); Segmented Neutrophils 86 % (50-85); Total Cells Counted 100
[2019-08-13 05:40] LABS: Hypochromasia 1+; Microcytosis 1+; Platelet Estimate Adequate
[2019-08-13] MEDS: INSULIN REGULAR 100 UNIT/ML SUBCUT SCH ×4 (08:14→21:12)
[2019-08-13] MEDS: PANTOPRAZOLE 40 MG VIAL IV SCH ×2 (08:32→21:09)
[2019-08-13] MEDS: POLYVINYL ALCOHOL 1.4% OPH SOLN 15 ML BOTTLE BOTH EYES SCH ×3 (08:32→21:11)
[2019-08-13] MEDS: SUCRALFATE 1 GM/10 ML UDCUP PO SCH ×4 (08:58→21:09)
[2019-08-13] MEDS ORDERED: DEXAMETHASONE 0.5 MG TABLET PO SCH (09:00)
[2019-08-13] MEDS ORDERED: DEXAMETHASONE 4 MG TABLET PO SCH (09:00)
[2019-08-13] MEDS ORDERED: ceFAZolin 1,000 MG in SYRINGE 1 EACH IV ONE (09:48)
[2019-08-13] MEDS: MULTIVITAMIN (CENTRUM) TABLET PO SCH (10:13)
[2019-08-13] MEDS: ASPIRIN 325 MG TABLET PO SCH (10:13)
[2019-08-13] MEDS: TAMSULOSIN 0.4 MG CAPSULE PO SCH (10:13)
[2019-08-13] MEDS: CETIRIZINE 10 MG TABLET PO SCH (10:14)
[2019-08-13] MEDS: MEMANTINE 10 MG TABLET PO SCH (10:14)
[2019-08-13] MEDS: PYRIDOXINE 100 MG TABLET PO SCH (10:14)
[2019-08-13] MEDS: SODIUM BICARBONATE 650 MG TABLET PO SCH ×2 (10:14→21:11)
[2019-08-13] MEDS ORDERED: LIDOCAINE 1%/EPI INJ 20 ML VIAL ONE (13:05)
[2019-08-13] MEDS ORDERED: BUPIVACAINE MPF 0.25% 30 ML VIAL ONE (13:05)
[2019-08-13] MEDS ORDERED: SODIUM CHLORIDE 0.9% 250 ML IV SCH (13:30)
[2019-08-13] MEDS ORDERED: KETAMINE 500 MG/10 ML VIAL ONE (14:10)
[2019-08-13] MEDS ORDERED: fentaNYL 100 MCG/2 ML VIAL ONE (14:11)
[2019-08-13] MEDS ORDERED: MIDAZOLAM 2 MG/2 ML VIAL ONE (14:11)
[2019-08-13] MEDS ORDERED: DEXTROSE 10% 250 ML BAG IV PRN ×2 (15:16→17:31)
[2019-08-13] MEDS ORDERED: ceFAZolin 2,000 MG in PREMIX 1 EACH IV ONE (17:00)
[2019-08-13] MEDS: INSULIN GLARGINE 100 UNIT/ML SUBCUT SCH (21:08)
[2019-08-13] MEDS: ATORVASTATIN 40 MG TABLET PO SCH (21:11)
[2019-08-13] MEDS: CYCLOBENZAPRINE 10 MG TABLET PO SCH (21:11)
[2019-08-13] MEDS: DULoxetine 30 MG CAPSULE PO SCH (21:11)
[2019-08-13] MEDS: PEG PROPYLENE GLYCOL BOTH EYES SCH (21:12)
[2019-08-14 06:05] LABS: Basophils % 0.1 % (0.0-0.8); Eosinophils # 0.1 10*3/uL (0.0-0.87); Eosinophils % 0.9 % (0.00-10.9); Hematocrit 24.9 VOL% (42.0-52.0); Hemoglobin 8.2 GM/DL (14.0-18.0); Immature Granulocytes Absolute 0.38 #; Lymphocytes # 0.4 10*3/uL (1.4-4.0); Lymphocytes % 5.3 % (21.2-54.2); Mean Corpuscular HGB Conc 32.9 GM/DL (32-36); Mean Corpuscular Volume 84.1 FL (87-102); Mean Platelet Volume 11.1 FL (9.6-12.0); Monocytes % 12.8 % (1.7-12.7); Neutrophils % 75.9 % (38.7-73.9); Platelet Count 157 T/CUMM (130-400); Red Blood Count 2.96 MC/CUMM (3.8-5.5); Red Cell Distribution Width 15.9 % (9.3-17.3); White Blood Count 7.6 T/CUMM (4-12)
[2019-08-14 06:20] LABS: Calcium 8.5 MG/DL (8.5-10.1); Osmolality,Calculated 284.1 MOS/KG (273-304)
[2019-08-14] MEDS: POTASSIUM CHLORIDE RIDER 10 MEQ in PREMIX 1 EACH IV PRN ×2 (07:44→09:15)
[2019-08-14] MEDS ORDERED: DEXTROSE 50% 25 GM/50 ML VIAL IV PRN (14:26)
[2019-08-14] MEDS ORDERED: GLUCAGON 1 MG VIAL IM PRN (14:26)
[2019-08-14] MEDS: SUCRALFATE 1 GM/10 ML UDCUP PO SCH ×4 (14:27→21:16)
[2019-08-14] MEDS: INSULIN REGULAR 100 UNIT/ML SUBCUT SCH ×4 (14:27→23:05)
[2019-08-14] MEDS: CETIRIZINE 10 MG TABLET PO SCH (14:28)
[2019-08-14] MEDS: MEMANTINE 10 MG TABLET PO SCH (14:29)
[2019-08-14] MEDS: MULTIVITAMIN (CENTRUM) TABLET PO SCH (14:29)
[2019-08-14] MEDS: SODIUM BICARBONATE 650 MG TABLET PO SCH ×2 (14:29→21:16)
[2019-08-14] MEDS: PYRIDOXINE 100 MG TABLET PO SCH (14:29)
[2019-08-14] MEDS: ASPIRIN 325 MG TABLET PO SCH (14:29)
[2019-08-14] MEDS: PANTOPRAZOLE 40 MG VIAL IV SCH ×2 (14:30→21:16)
[2019-08-14] MEDS: POLYVINYL ALCOHOL 1.4% OPH SOLN 15 ML BOTTLE BOTH EYES SCH ×3 (14:30→21:22)
[2019-08-14] MEDS: POLYETHYLENE GLYCOL POWDER 17 GM PACK PO SCH (14:30)
[2019-08-14] MEDS: TAMSULOSIN 0.4 MG CAPSULE PO SCH (14:30)
[2019-08-14] MEDS: SODIUM CHLORIDE 0.9% 500 ML IV SCH (14:37)
[2019-08-14] MEDS ORDERED: ceFAZolin 2,000 MG in PREMIX 1 EACH IV ONE (17:00)
[2019-08-14] MEDS: ATORVASTATIN 40 MG TABLET PO SCH (21:16)
[2019-08-14] MEDS: CYCLOBENZAPRINE 10 MG TABLET PO SCH (21:16)
[2019-08-14] MEDS: DULoxetine 30 MG CAPSULE PO SCH (21:16)
[2019-08-14] MEDS: OXYMETAZOLINE 0.05% NASAL SPRAY 15 ML BOTTLE BOTH NARES PRN (21:22)
[2019-08-14] MEDS: INSULIN GLARGINE 100 UNIT/ML SUBCUT SCH (23:06)
[2019-08-14] MEDS: PEG PROPYLENE GLYCOL BOTH EYES SCH (23:06)
[2019-08-15 04:50] LABS: Risk Ratio 4.74; VLDL CHOLESTEROL 53.2 MG/DL
[2019-08-15 04:54] LABS: Calcium 8.3 MG/DL (8.5-10.1)
[2019-08-15] MEDS ORDERED: ETOMIDATE 20 MG/10 ML VIAL IV ONE (09:00)
[2019-08-15] MEDS ORDERED: propofoL 200 MG/20 ML VIAL IV ONE (09:00)
[2019-08-15] MEDS ORDERED: LIDOCAINE 2% 5 ML VIAL ONE (09:00)
[2019-08-15] MEDS: INSULIN REGULAR 100 UNIT/ML SUBCUT SCH ×4 (09:14→21:36)
[2019-08-15 09:26] LABS: Basophils % 0.3 % (0.0-0.8); Eosinophils # 0.2 10*3/uL (0.0-0.87); Hematocrit 27.1 VOL% (42.0-52.0); Hemoglobin 8.6 GM/DL (14.0-18.0); Immature Granulocytes % 2.5 %; Lymphocytes # 0.7 10*3/uL (1.4-4.0); Lymphocytes % 9.4 % (21.2-54.2); Mean Corpuscular HGB Conc 31.7 GM/DL (32-36); Mean Corpuscular Volume 87.4 FL (87-102); Monocytes % 14.1 % (1.7-12.7); Neutrophils % 70.7 % (38.7-73.9); Platelet Count 153 T/CUMM (130-400); White Blood Count 7.9 T/CUMM (4-12)
[2019-08-15] MEDS: SUCRALFATE 1 GM/10 ML UDCUP PO SCH (09:52)
[2019-08-15] MEDS: MULTIVITAMIN (CENTRUM) TABLET PO SCH (10:19)
[2019-08-15] MEDS: CETIRIZINE 10 MG TABLET PO SCH (10:19)
[2019-08-15] MEDS: BISACODYL 5 MG TABLET PO SCH ×2 (10:19→18:01)
[2019-08-15] MEDS: TAMSULOSIN 0.4 MG CAPSULE PO SCH (10:19)
[2019-08-15] MEDS: PYRIDOXINE 100 MG TABLET PO SCH (10:19)
[2019-08-15] MEDS: ERGOCALCIFEROL 50,000 UNIT CAPSULE PO SCH (10:20)
[2019-08-15] MEDS: ASPIRIN 325 MG TABLET PO SCH (10:20)
[2019-08-15] MEDS: OXYMETAZOLINE 0.05% NASAL SPRAY 15 ML BOTTLE BOTH NARES PRN (10:20)
[2019-08-15] MEDS: POLYVINYL ALCOHOL 1.4% OPH SOLN 15 ML BOTTLE BOTH EYES SCH ×3 (10:20→21:36)
[2019-08-15] MEDS: PANTOPRAZOLE 40 MG VIAL IV SCH ×2 (10:20→21:38)
[2019-08-15] MEDS: MEMANTINE 10 MG TABLET PO SCH (10:20)
[2019-08-15] MEDS: SODIUM BICARBONATE 650 MG TABLET PO SCH ×2 (10:20→21:39)
[2019-08-15] MEDS ORDERED: POLYETHYLENE GLYCOL 3350/ELECTROLYTES 4,000 ML BOTTLE NG ONE (18:00)
[2019-08-15] MEDS ORDERED: POLYETHYLENE GLYCOL 3350/ELECTROLYTES 4,000 ML BOTTLE PO ONE (18:00)
[2019-08-15] MEDS: SODIUM CHLORIDE 0.9% 500 ML IV SCH (18:14)
[2019-08-15] MEDS ORDERED: MAGNESIUM CITRATE 300 ML BOTTLE PO ONE (21:00)
[2019-08-15] MEDS: INSULIN GLARGINE 100 UNIT/ML SUBCUT SCH (21:37)
[2019-08-15] MEDS: DULoxetine 30 MG CAPSULE PO SCH (21:39)
[2019-08-15] MEDS: CYCLOBENZAPRINE 10 MG TABLET PO SCH (21:39)
[2019-08-15] MEDS: PEG PROPYLENE GLYCOL BOTH EYES SCH (21:39)
[2019-08-15] MEDS: ATORVASTATIN 40 MG TABLET PO SCH (21:39)
[2019-08-16] MEDS: BISACODYL 5 MG TABLET PO SCH (00:52)
[2019-08-16 04:49] LABS: Basophils % 0.3 % (0.0-0.8); Eosinophils # 0.2 10*3/uL (0.0-0.87); Eosinophils % 2.8 % (0.00-10.9); Hematocrit 25.5 VOL% (42.0-52.0); Hemoglobin 8.1 GM/DL (14.0-18.0); Immature Granulocytes % 1.3 %; Lymphocytes # 0.7 10*3/uL (1.4-4.0); Lymphocytes % 8.3 % (21.2-54.2); Mean Corpuscular HGB Conc 31.8 GM/DL (32-36); Mean Corpuscular Volume 87.6 FL (87-102); Mean Platelet Volume 11.2 FL (9.6-12.0); Monocytes % 14.1 % (1.7-12.7); Neutrophils % 73.2 % (38.7-73.9); Platelet Count 154 T/CUMM (130-400); Red Blood Count 2.91 MC/CUMM (3.8-5.5); Red Cell Distribution Width 15.8 % (9.3-17.3); White Blood Count 7.9 T/CUMM (4-12)
[2019-08-16 07:27] LABS: Calcium 8.4 MG/DL (8.5-10.1); Osmolality,Calculated 279.1 MOS/KG (273-304)
[2019-08-16] MEDS: SODIUM CHLORIDE 0.9% 500 ML IV SCH ×2 (08:17→08:45)
[2019-08-16] MEDS ORDERED: ETOMIDATE 20 MG/10 ML VIAL IV ONE (09:00)
[2019-08-16] MEDS ORDERED: LIDOCAINE 2% 5 ML VIAL ONE (09:00)
[2019-08-16] MEDS ORDERED: propofoL 200 MG/20 ML VIAL IV ONE (09:00)
[2019-08-16] MEDS: INSULIN REGULAR 100 UNIT/ML SUBCUT SCH ×4 (12:32→20:59)
[2019-08-16] MEDS: PANTOPRAZOLE 40 MG VIAL IV SCH ×2 (17:23→20:57)
[2019-08-16] MEDS: POLYVINYL ALCOHOL 1.4% OPH SOLN 15 ML BOTTLE BOTH EYES SCH ×3 (17:23→20:40)
[2019-08-16] MEDS: CETIRIZINE 10 MG TABLET PO SCH (17:24)
[2019-08-16] MEDS: PYRIDOXINE 100 MG TABLET PO SCH (17:24)
[2019-08-16] MEDS: MULTIVITAMIN (CENTRUM) TABLET PO SCH (17:24)
[2019-08-16] MEDS: MEMANTINE 10 MG TABLET PO SCH (17:25)
[2019-08-16] MEDS: SODIUM BICARBONATE 650 MG TABLET PO SCH ×2 (17:25→20:58)
[2019-08-16] MEDS: TAMSULOSIN 0.4 MG CAPSULE PO SCH (17:25)
[2019-08-16] MEDS: ASPIRIN 325 MG TABLET PO SCH (17:25)
[2019-08-16] MEDS: ceFAZolin 1,000 MG in SYRINGE 1 EACH IV SCH (17:35)
[2019-08-16] MEDS: COENZYME Q10 100 MG CAPSULE PO SCH (17:36)
[2019-08-16] MEDS: CYCLOBENZAPRINE 10 MG TABLET PO SCH (20:57)
[2019-08-16] MEDS: ATORVASTATIN 40 MG TABLET PO SCH (20:57)
[2019-08-16] MEDS: DULoxetine 30 MG CAPSULE PO SCH (20:58)
[2019-08-16] MEDS: INSULIN GLARGINE 100 UNIT/ML SUBCUT SCH (20:59)
[2019-08-16] MEDS: PEG PROPYLENE GLYCOL BOTH EYES SCH (21:02)
[2019-08-17] MEDS: INSULIN REGULAR 100 UNIT/ML SUBCUT SCH ×4 (07:21→21:56)
[2019-08-17] MEDS: SODIUM BICARBONATE 650 MG TABLET PO SCH ×2 (08:56→21:57)
[2019-08-17] MEDS: COENZYME Q10 100 MG CAPSULE PO SCH (08:56)
[2019-08-17] MEDS: ASPIRIN 325 MG TABLET PO SCH (08:56)
[2019-08-17] MEDS: MULTIVITAMIN (CENTRUM) TABLET PO SCH (08:56)
[2019-08-17] MEDS: CETIRIZINE 10 MG TABLET PO SCH (08:56)
[2019-08-17] MEDS: MEMANTINE 10 MG TABLET PO SCH (08:56)
[2019-08-17] MEDS: POLYVINYL ALCOHOL 1.4% OPH SOLN 15 ML BOTTLE BOTH EYES SCH ×3 (08:56→21:56)
[2019-08-17] MEDS: TAMSULOSIN 0.4 MG CAPSULE PO SCH (08:57)
[2019-08-17] MEDS: PANTOPRAZOLE 40 MG VIAL IV SCH ×2 (08:57→21:57)
[2019-08-17] MEDS: PYRIDOXINE 100 MG TABLET PO SCH (08:57)
[2019-08-17] MEDS: SODIUM CHLORIDE 0.9% 500 ML IV SCH (11:32)
[2019-08-17] MEDS: ceFAZolin 1,000 MG in SYRINGE 1 EACH IV SCH (16:36)
[2019-08-17] MEDS: INSULIN GLARGINE 100 UNIT/ML SUBCUT SCH (21:55)
[2019-08-17] MEDS: CYCLOBENZAPRINE 10 MG TABLET PO SCH (21:57)
[2019-08-17] MEDS: DULoxetine 30 MG CAPSULE PO SCH (21:57)
[2019-08-17] MEDS: ATORVASTATIN 40 MG TABLET PO SCH (21:58)
[2019-08-17] MEDS: PEG PROPYLENE GLYCOL BOTH EYES SCH (21:58)
[2019-08-17] MEDS: POTASSIUM CHLORIDE 20 MEQ TABLET PO SCH (22:02)
[2019-08-18 05:37] LABS: Basophils # 0.1 10*3/uL (0.0-0.2); Basophils % 0.6 % (0.0-0.8); Eosinophils # 0.2 10*3/uL (0.0-0.87); Eosinophils % 2.6 % (0.00-10.9); Hematocrit 24.1 VOL% (42.0-52.0); Hemoglobin 7.6 GM/DL (14.0-18.0); Immature Granulocytes % 0.9 %; Immature Granulocytes Absolute 0.08 #; Lymphocytes # 0.6 10*3/uL (1.4-4.0); Lymphocytes % 6.7 % (21.2-54.2); Mean Corpuscular HGB Conc 31.5 GM/DL (32-36); Mean Corpuscular Volume 86.7 FL (87-102); Mean Platelet Volume 11.7 FL (9.6-12.0); Monocytes % 12.7 % (1.7-12.7); Neutrophils % 76.5 % (38.7-73.9); Platelet Count 182 T/CUMM (130-400); Red Blood Count 2.78 MC/CUMM (3.8-5.5); Red Cell Distribution Width 15.8 % (9.3-17.3); White Blood Count 8.5 T/CUMM (4-12)
[2019-08-18 05:55] LABS: Alanine Aminotransferase < 6 U/L (16-61); Albumin 2.4 G/DL (3.4-5.0); Alkaline Phosphatase 66 U/L (45-117); Aspartate Amino Transferase 48 U/L (0-37); Blood Urea Nitrogen 30 MG/DL (7-18); Calcium 9.1 MG/DL (8.5-10.1); Estimated Glom Filtration Rate 9 ML/MIN; Glucose 106 MG/DL (74-106); Osmolality,Calculated 275.1 MOS/KG (273-304); Total Protein 7.9 G/DL (6.4-8.3)
[2019-08-18] MEDS ORDERED: SODIUM CHLORIDE 0.9% 1,000 ML IV PRN ×2 (07:29→07:30)
[2019-08-18] MEDS: INSULIN REGULAR 100 UNIT/ML SUBCUT SCH ×4 (09:05→21:20)
[2019-08-18] MEDS: PANTOPRAZOLE 40 MG VIAL IV SCH ×2 (09:06→21:22)
[2019-08-18] MEDS: POLYVINYL ALCOHOL 1.4% OPH SOLN 15 ML BOTTLE BOTH EYES SCH ×3 (09:06→21:27)
[2019-08-18] MEDS: COENZYME Q10 100 MG CAPSULE PO SCH (09:07)
[2019-08-18] MEDS: SODIUM BICARBONATE 650 MG TABLET PO SCH ×2 (09:07→21:24)
[2019-08-18] MEDS: ASPIRIN 325 MG TABLET PO SCH (09:07)
[2019-08-18] MEDS: CETIRIZINE 10 MG TABLET PO SCH (09:07)
[2019-08-18] MEDS: POTASSIUM CHLORIDE 20 MEQ TABLET PO SCH ×2 (09:08→21:23)
[2019-08-18] MEDS: TAMSULOSIN 0.4 MG CAPSULE PO SCH (09:08)
[2019-08-18] MEDS: PYRIDOXINE 100 MG TABLET PO SCH (09:08)
[2019-08-18] MEDS: MULTIVITAMIN (CENTRUM) TABLET PO SCH (09:08)
[2019-08-18] MEDS: MEMANTINE 10 MG TABLET PO SCH (09:08)
[2019-08-18] MEDS: ceFAZolin 1,000 MG in SYRINGE 1 EACH IV SCH (16:55)
[2019-08-18] MEDS: INSULIN GLARGINE 100 UNIT/ML SUBCUT SCH (21:21)
[2019-08-18] MEDS: CYCLOBENZAPRINE 10 MG TABLET PO SCH (21:23)
[2019-08-18] MEDS: ATORVASTATIN 40 MG TABLET PO SCH (21:23)
[2019-08-18] MEDS: DULoxetine 30 MG CAPSULE PO SCH (21:23)
[2019-08-18] MEDS: PEG PROPYLENE GLYCOL BOTH EYES SCH (21:27)
[2019-08-19 05:05] LABS: Basophils % 0.3 % (0.0-0.8); Eosinophils # 0.2 10*3/uL (0.0-0.87); Eosinophils % 2.4 % (0.00-10.9); Hematocrit 24.1 VOL% (42.0-52.0); Hemoglobin 7.7 GM/DL (14.0-18.0); Immature Granulocytes % 0.9 %; Immature Granulocytes Absolute 0.08 #; Lymphocytes # 0.7 10*3/uL (1.4-4.0); Lymphocytes % 7.8 % (21.2-54.2); Mean Corpuscular Volume 86.7 FL (87-102); Monocytes % 10.5 % (1.7-12.7); Neutrophils % 78.1 % (38.7-73.9); Platelet Count 219 T/CUMM (130-400); Red Blood Count 2.78 MC/CUMM (3.8-5.5); Red Cell Distribution Width 15.9 % (9.3-17.3); White Blood Count 9.1 T/CUMM (4-12)
[2019-08-19 05:24] LABS: Alanine Aminotransferase < 6 U/L (16-61); Albumin 2.4 G/DL (3.4-5.0); Alkaline Phosphatase 64 U/L (45-117); Aspartate Amino Transferase 46 U/L (0-37); Blood Urea Nitrogen 37 MG/DL (7-18); Estimated Glom Filtration Rate 7 ML/MIN; Glucose 113 MG/DL (74-106); Osmolality,Calculated 277.2 MOS/KG (273-304); Total Protein 7.9 G/DL (6.4-8.3)
[2019-08-19] MEDS: MEMANTINE 10 MG TABLET PO SCH (09:05)
[2019-08-19] MEDS: CETIRIZINE 10 MG TABLET PO SCH (09:05)
[2019-08-19] MEDS: SODIUM BICARBONATE 650 MG TABLET PO SCH (09:05)
[2019-08-19] MEDS: POTASSIUM CHLORIDE 20 MEQ TABLET PO SCH (09:06)
[2019-08-19] MEDS: MULTIVITAMIN (CENTRUM) TABLET PO SCH (09:06)
[2019-08-19] MEDS: ASPIRIN 325 MG TABLET PO SCH (09:06)
[2019-08-19] MEDS: COENZYME Q10 100 MG CAPSULE PO SCH (09:06)
[2019-08-19] MEDS: PYRIDOXINE 100 MG TABLET PO SCH (09:06)
[2019-08-19] MEDS: TAMSULOSIN 0.4 MG CAPSULE PO SCH (09:06)
[2019-08-19] MEDS: PANTOPRAZOLE 40 MG VIAL IV SCH (09:06)
[2019-08-19] MEDS: POLYVINYL ALCOHOL 1.4% OPH SOLN 15 ML BOTTLE BOTH EYES SCH ×2 (09:10→17:02)
[2019-08-19] MEDS: INSULIN REGULAR 100 UNIT/ML SUBCUT SCH ×3 (09:10→17:02)
[2019-08-19] MEDS: ceFAZolin 1,000 MG in SYRINGE 1 EACH IV SCH (17:02)
[2019-08-19 17:34] VITALS: BP 125/79
== END 2019-08-19 19:08 | DRG 314 ==
LOC: EDBD → EDUNIT# → N.ED 13:54 → N.EDINP 16:03 → SUATTDRO 16:03 → N.4E 16:36
PROVIDERS: ADMIT Nurse Practitioner Family; ATTEND Internal Medicine
PROC: COLONBX (2019-08-16 07:05)

== ENCOUNTER 2019-08-21 19:17 | Inpatient (IN) ==
[2019-08-21 20:14] LABS: Basophils # 0.1 10*3/uL (0.0-0.2); Basophils % 0.7 % (0.0-0.8); Eosinophils # 0.1 10*3/uL (0.0-0.87); Eosinophils % 0.9 % (0.00-10.9); Hematocrit 30.8 VOL% (42.0-52.0); Hemoglobin 9.5 GM/DL (14.0-18.0); Immature Granulocytes % 0.9 %; Immature Granulocytes Absolute 0.07 #; Lymphocytes # 0.3 10*3/uL (1.4-4.0); Mean Corpuscular HGB Conc 30.8 GM/DL (32-36); Mean Corpuscular Volume 90.1 FL (87-102); Mean Platelet Volume 10.4 FL (9.6-12.0); Monocytes % 19.9 % (1.7-12.7); Neutrophils % 73.6 % (38.7-73.9); Platelet Count 281 T/CUMM (130-400); Red Blood Count 3.42 MC/CUMM (3.8-5.5); Red Cell Distribution Width 16.3 % (9.3-17.3); White Blood Count 7.6 T/CUMM (4-12)
[2019-08-21 20:21] LABS: PT Patient Result 11.3 SECS (9.6-12.2)
[2019-08-21 20:33] LABS: Lymphocytes 4 % (20-55); Segmented Neutrophils 76 % (50-85); Total Cells Counted 100
[2019-08-21 20:34] LABS: Hypochromasia Slight; Platelet Estimate Adequate
[2019-08-21 20:44] LABS: Alanine Aminotransferase < 6 U/L (16-61); Albumin 2.8 G/DL (3.4-5.0); Alkaline Phosphatase 75 U/L (45-117); Aspartate Amino Transferase 38 U/L (0-37); Blood Urea Nitrogen 44 MG/DL (7-18); Calcium 9.3 MG/DL (8.5-10.1); Estimated Glom Filtration Rate 6 ML/MIN; Glucose 180 MG/DL (74-106); Osmolality,Calculated 281.4 MOS/KG (273-304); Total Protein 8.6 G/DL (6.4-8.3)
[2019-08-21 20:45] LABS: Amylase 186 U/L (25-115); Troponin I < 0.015 NG/ML (0.00-0.045)
[2019-08-21] MEDS ORDERED: VANCOMYCIN INJ 1,000 MG in SODIUM CHLORIDE 0.9% 250 ML IV STA (21:03)
[2019-08-21] MEDS ORDERED: PIPERACILLIN/TAZOBACTAM 3,375 MG in SODIUM CHLORIDE 0.9% 100 ML IV STA (21:03)
[2019-08-21] MEDS ORDERED: ALBUTEROL NEB SOLN 5 MG/ML 20 ML/BOTTLE CONT NEB STA (21:04)
[2019-08-21] MEDS ORDERED: ONDANSETRON 4 MG/2 ML VIAL IV PRN (23:11)
[2019-08-21] MEDS ORDERED: ZALEPLON 5 MG CAPSULE PO PRN (23:11)
[2019-08-21] MEDS ORDERED: ACETAMINOPHEN 325 MG TABLET PO PRN (23:11)
[2019-08-21] MEDS ORDERED: GLUCAGON 1 MG VIAL IM PRN (23:11)
[2019-08-21] MEDS ORDERED: DEXTROSE 50% 25 GM/50 ML SYRINGE IV PRN (23:11)
[2019-08-21] MEDS ORDERED: HEPARIN 2,000 UNIT/2 ML VIAL IV SCH (23:30)
[2019-08-21] MEDS ORDERED: POLYETHYLENE GLYCOL POWDER 255 GM BOTTLE PO SCH (23:30)
[2019-08-21] MEDS ORDERED: [UNRECOGNIZED DRUG - OTHER] PO SCH (23:30)
[2019-08-22] MEDS: LEVALBUTEROL 1.25 MG/3 ML NEB RESP TX SCH ×4 (01:12→19:03)
[2019-08-22] MEDS: guaiFENesin 200 MG/10 ML UDCUP PO SCH ×5 (03:38→21:44)
[2019-08-22 07:11] LABS: Basophils % 0.4 % (0.0-0.8); Eosinophils % 0.4 % (0.00-10.9); Hematocrit 27.5 VOL% (42.0-52.0); Hemoglobin 8.7 GM/DL (14.0-18.0); Immature Granulocytes % 0.9 %; Immature Granulocytes Absolute 0.06 #; Lymphocytes # 0.3 10*3/uL (1.4-4.0); Lymphocytes % 4.4 % (21.2-54.2); Mean Corpuscular HGB Conc 31.6 GM/DL (32-36); Mean Corpuscular Volume 87.3 FL (87-102); Mean Platelet Volume 10.7 FL (9.6-12.0); Monocytes % 21.9 % (1.7-12.7); Platelet Count 247 T/CUMM (130-400); Red Blood Count 3.15 MC/CUMM (3.8-5.5); Red Cell Distribution Width 16.5 % (9.3-17.3); White Blood Count 6.8 T/CUMM (4-12)
[2019-08-22 07:32] LABS: Alanine Aminotransferase < 6 U/L (16-61); Albumin 2.5 G/DL (3.4-5.0); Alkaline Phosphatase 73 U/L (45-117); Aspartate Amino Transferase 38 U/L (0-37); Blood Urea Nitrogen 47 MG/DL (7-18); Calcium 8.8 MG/DL (8.5-10.1); Estimated Glom Filtration Rate 6 ML/MIN; Glucose 180 MG/DL (74-106); Osmolality,Calculated 280.5 MOS/KG (273-304); Total Protein 7.9 G/DL (6.4-8.3)
[2019-08-22 07:35] LABS: Hypochromasia 2+; Lymphocytes 2 % (20-55); Ovalocytes Slight; Platelet Estimate Adequate; Segmented Neutrophils 79 % (50-85); Total Cells Counted 100
[2019-08-22] MEDS ORDERED: DEXAMETHASONE 4 MG TABLET PO SCH (08:00)
[2019-08-22] MEDS ORDERED: MEMANTINE 10 MG TABLET PO SCH (09:00)
[2019-08-22] MEDS ORDERED: amLODIPine 10 MG TABLET PO SCH (09:00)
[2019-08-22] MEDS ORDERED: PIPERACILLIN/TAZOBACTAM 3,375 MG in SODIUM CHLORIDE 0.9% 100 ML IV SCH (09:00)
[2019-08-22] MEDS ORDERED: ERGOCALCIFEROL 50,000 UNIT CAPSULE PO SCH (09:00)
[2019-08-22] MEDS: COENZYME Q10 100 MG CAPSULE PO SCH (09:01)
[2019-08-22] MEDS: ASPIRIN 325 MG TABLET PO SCH (09:01)
[2019-08-22] MEDS: MULTIVITAMIN (CENTRUM) TABLET PO SCH (09:01)
[2019-08-22] MEDS: CETIRIZINE 10 MG TABLET PO SCH (09:01)
[2019-08-22] MEDS: SODIUM BICARBONATE 650 MG TABLET PO SCH ×2 (09:01→21:44)
[2019-08-22] MEDS: PYRIDOXINE 100 MG TABLET PO SCH (09:01)
[2019-08-22] MEDS: POLYVINYL ALCOHOL 1.4% OPH SOLN 15 ML BOTTLE BOTH EYES SCH ×3 (09:02→21:44)
[2019-08-22] MEDS: ENOXAPARIN 30 MG/0.3 ML SYRINGE SUBCUT SCH (09:02)
[2019-08-22] MEDS: TAMSULOSIN 0.4 MG CAPSULE PO SCH (09:02)
[2019-08-22] MEDS ORDERED: HEPARIN 10,000 UNIT/10 ML VIAL IV SCH (15:30)
[2019-08-22] MEDS ORDERED: EPOETIN ALFA 10,000 UNIT/1 ML VIAL IV PRN (15:54)
[2019-08-22] MEDS ORDERED: MEMANTINE 5 MG TABLET PO SCH (16:21)
[2019-08-22] MEDS ORDERED: amLODIPine 5 MG TABLET PO SCH (16:24)
[2019-08-22] MEDS: ceFAZolin 1,000 MG in SYRINGE 1 EACH IV SCH (17:09)
[2019-08-22] MEDS ORDERED: DULoxetine 20 MG CAPSULE PO SCH (21:00)
[2019-08-22] MEDS ORDERED: ATORVASTATIN 40 MG TABLET PO SCH (21:00)
[2019-08-22] MEDS ORDERED: INSULIN GLARGINE 100 UNIT/ML SUBCUT SCH (21:00)
[2019-08-22] MEDS ORDERED: CYCLOBENZAPRINE 10 MG TABLET PO SCH (21:00)
[2019-08-22] MEDS ORDERED: CARBOXYMETHYLCELLULOSE 1% OPH SOLN BOTH EYES SCH (21:00)
[2019-08-22] MEDS ORDERED: DULoxetine 30 MG CAPSULE PO SCH (21:00)
[2019-08-22] MEDS: INSULIN LISPRO 100 UNIT/ML SUBCUT SCH (21:45)
[2019-08-23] MEDS: LEVALBUTEROL 1.25 MG/3 ML NEB RESP TX SCH ×3 (00:50→13:12)
[2019-08-23 06:41] LABS: Basophils % 0.8 % (0.0-0.8); Hemoglobin 8.5 GM/DL (14.0-18.0); Immature Granulocytes % 1.2 %; Immature Granulocytes Absolute 0.06 #; Lymphocytes # 0.4 10*3/uL (1.4-4.0); Lymphocytes % 8.9 % (21.2-54.2); Mean Corpuscular HGB Conc 31.5 GM/DL (32-36); Mean Corpuscular Volume 87.7 FL (87-102); Mean Platelet Volume 10.1 FL (9.6-12.0); Monocytes % 26.8 % (1.7-12.7); Neutrophils % 62.3 % (38.7-73.9); Platelet Count 261 T/CUMM (130-400); Red Blood Count 3.08 MC/CUMM (3.8-5.5); Red Cell Distribution Width 16.4 % (9.3-17.3); White Blood Count 4.9 T/CUMM (4-12)
[2019-08-23 06:55] LABS: Calcium 8.9 MG/DL (8.5-10.1); Osmolality,Calculated 280.2 MOS/KG (273-304)
[2019-08-23 07:08] LABS: Band Neutrophils 2 % (0-10); Eosinophils 1 % (0-10); Lymphocytes 8 % (20-55); Platelet Estimate Normal; Segmented Neutrophils 70 % (50-85); Total Cells Counted 100
[2019-08-23 07:09] LABS: Anisocytosis Slight; Hypochromasia 1+
[2019-08-23] MEDS: INSULIN LISPRO 100 UNIT/ML SUBCUT SCH ×3 (08:50→16:38)
[2019-08-23] MEDS: MULTIVITAMIN (CENTRUM) TABLET PO SCH (08:51)
[2019-08-23] MEDS: CETIRIZINE 10 MG TABLET PO SCH (08:51)
[2019-08-23] MEDS: TAMSULOSIN 0.4 MG CAPSULE PO SCH (08:51)
[2019-08-23] MEDS: ASPIRIN 325 MG TABLET PO SCH (08:51)
[2019-08-23] MEDS: SODIUM BICARBONATE 650 MG TABLET PO SCH (08:51)
[2019-08-23] MEDS: ENOXAPARIN 30 MG/0.3 ML SYRINGE SUBCUT SCH (08:51)
[2019-08-23] MEDS: COENZYME Q10 100 MG CAPSULE PO SCH (08:51)
[2019-08-23] MEDS: ceFAZolin 1,000 MG in SYRINGE 1 EACH IV SCH (08:52)
[2019-08-23] MEDS: PYRIDOXINE 100 MG TABLET PO SCH (08:52)
[2019-08-23] MEDS: guaiFENesin 200 MG/10 ML UDCUP PO SCH ×3 (08:52→16:47)
[2019-08-23] MEDS: POLYVINYL ALCOHOL 1.4% OPH SOLN 15 ML BOTTLE BOTH EYES SCH ×2 (08:56→16:47)
[2019-08-23] MEDS ORDERED: POLYETHYLENE GLYCOL POWDER 17 GM PACK PO SCH (09:00)
[2019-08-23 09:17] LABS: Free T4 (Free Thyroxine) 1.24 NG/DL (0.76-1.46)
[2019-08-23 15:46] VITALS: BP 125/72
== END 2019-08-23 17:10 | DRG 205 ==
LOC: EDUNIT# → EDBD → N.ED 19:17 → N.EDINP 23:11 → N.5E 23:47
PROVIDERS: ADMIT Internal Medicine; ATTEND Internal Medicine

== ENCOUNTER 2019-08-31 15:16 | Inpatient (IN) ==
[2019-08-31] MEDS ORDERED: ASPIRIN 325 MG TABLET PO STA (15:42)
[2019-08-31 16:07] LABS: Basophils % 0.3 % (0.0-0.8); Eosinophils # 0.1 10*3/uL (0.0-0.87); Eosinophils % 1.3 % (0.00-10.9); Hematocrit 30.8 VOL% (42.0-52.0); Hemoglobin 9.7 GM/DL (14.0-18.0); Immature Granulocytes % 1.8 %; Immature Granulocytes Absolute 0.11 #; Lymphocytes # 0.8 10*3/uL (1.4-4.0); Lymphocytes % 12.9 % (21.2-54.2); Mean Corpuscular HGB Conc 31.5 GM/DL (32-36); Mean Corpuscular Volume 88.8 FL (87-102); Mean Platelet Volume 8.8 FL (9.6-12.0); Monocytes % 13.4 % (1.7-12.7); Neutrophils % 70.3 % (38.7-73.9); Platelet Count 274 T/CUMM (130-400); Red Blood Count 3.47 MC/CUMM (3.8-5.5); Red Cell Distribution Width 15.3 % (9.3-17.3); White Blood Count 6.1 T/CUMM (4-12)
[2019-08-31 16:21] LABS: PT Patient Result 10.6 SECS (9.6-12.2); Partial Thromboplastin Time 27.7 SECS (20.8-36.0)
[2019-08-31 16:22] LABS: Calcium 8.6 MG/DL (8.5-10.1); Osmolality,Calculated 273.1 MOS/KG (273-304)
[2019-08-31] MEDS ORDERED: GLUCAGON 1 MG VIAL IM PRN (20:04)
[2019-08-31] MEDS ORDERED: DEXTROSE 10% 250 ML BAG IV PRN (20:09)
[2019-08-31] MEDS ORDERED: LEVOFLOXACIN INJ 750 MG in PREMIX 1 EACH IV ONE (20:28)
[2019-08-31] MEDS: HEPARIN DRIP 25,000 UNITS/500 ML PREMIX IV SCH (21:45)
[2019-08-31] MEDS ORDERED: CEFAZOLIN IV SCH (23:01)
[2019-09-01] MEDS: ATORVASTATIN 40 MG TABLET PO SCH ×2 (00:30→21:01)
[2019-09-01] MEDS: SODIUM BICARBONATE 650 MG TABLET PO SCH ×3 (00:30→21:00)
[2019-09-01] MEDS: DONEPEZIL 10 MG TABLET PO SCH ×2 (00:30→21:00)
[2019-09-01] MEDS: INSULIN LISPRO 100 UNIT/ML SUBCUT SCH ×5 (00:31→20:20)
[2019-09-01] MEDS: INSULIN GLARGINE 100 UNIT/ML SUBCUT SCH ×2 (01:32→21:01)
[2019-09-01] MEDS: DULoxetine 20 MG CAPSULE PO SCH ×2 (01:32→21:00)
[2019-09-01 06:07] LABS: Basophils % 0.5 % (0.0-0.8); Eosinophils # 0.1 10*3/uL (0.0-0.87); Eosinophils % 1.5 % (0.00-10.9); Hematocrit 26.6 VOL% (42.0-52.0); Hemoglobin 8.2 GM/DL (14.0-18.0); Immature Granulocytes % 1.3 %; Immature Granulocytes Absolute 0.08 #; Lymphocytes # 0.7 10*3/uL (1.4-4.0); Lymphocytes % 11.6 % (21.2-54.2); Mean Corpuscular HGB Conc 30.8 GM/DL (32-36); Mean Corpuscular Volume 88.4 FL (87-102); Mean Platelet Volume 9.1 FL (9.6-12.0); Monocytes % 14.7 % (1.7-12.7); Neutrophils % 70.4 % (38.7-73.9); Platelet Count 263 T/CUMM (130-400); Red Blood Count 3.01 MC/CUMM (3.8-5.5); Red Cell Distribution Width 15.4 % (9.3-17.3); White Blood Count 6.1 T/CUMM (4-12)
[2019-09-01 06:38] LABS: Calcium 8.5 MG/DL (8.5-10.1); Osmolality,Calculated 275.2 MOS/KG (273-304)
[2019-09-01] MEDS: amLODIPine 10 MG TABLET PO SCH (08:39)
[2019-09-01] MEDS: ASPIRIN 325 MG TABLET PO SCH (08:39)
[2019-09-01] MEDS: CETIRIZINE 10 MG TABLET PO SCH (08:39)
[2019-09-01] MEDS: POTASSIUM CHLORIDE 20 MEQ TABLET PO PRN ×4 (08:39→16:35)
[2019-09-01] MEDS: MEMANTINE 10 MG TABLET PO SCH (08:39)
[2019-09-01] MEDS: COENZYME Q10 100 MG CAPSULE PO SCH (08:40)
[2019-09-01] MEDS: TAMSULOSIN 0.4 MG CAPSULE PO SCH (08:40)
[2019-09-01] MEDS: HEPARIN DRIP 25,000 UNITS/500 ML PREMIX IV SCH ×2 (14:45→21:01)
[2019-09-01] MEDS ORDERED: WARFARIN 5 MG TABLET PO ONE (20:30)
[2019-09-02 06:25] LABS: Basophils % 0.4 % (0.0-0.8); Eosinophils # 0.1 10*3/uL (0.0-0.87); Eosinophils % 1.4 % (0.00-10.9); Hematocrit 22.6 VOL% (42.0-52.0); Hemoglobin 7.1 GM/DL (14.0-18.0); Immature Granulocytes % 1.1 %; Immature Granulocytes Absolute 0.08 #; Lymphocytes # 0.7 10*3/uL (1.4-4.0); Lymphocytes % 9.7 % (21.2-54.2); Mean Corpuscular HGB Conc 31.4 GM/DL (32-36); Mean Corpuscular Volume 87.6 FL (87-102); Mean Platelet Volume 9.3 FL (9.6-12.0); Monocytes % 13.1 % (1.7-12.7); Neutrophils % 74.3 % (38.7-73.9); Platelet Count 252 T/CUMM (130-400); Red Blood Count 2.58 MC/CUMM (3.8-5.5); Red Cell Distribution Width 15.5 % (9.3-17.3); White Blood Count 7.3 T/CUMM (4-12)
[2019-09-02] MEDS: HEPARIN DRIP 25,000 UNITS/500 ML PREMIX IV SCH ×2 (06:34→21:37)
[2019-09-02 06:43] LABS: Calcium 8.4 MG/DL (8.5-10.1); Osmolality,Calculated 276.1 MOS/KG (273-304)
[2019-09-02] MEDS ORDERED: SODIUM CHLORIDE 0.9% 1,000 ML IV PRN (07:30)
[2019-09-02 08:21] LABS: INR 1.1; PT Patient Result 11.4 SECS (9.6-12.2)
[2019-09-02] MEDS: CETIRIZINE 10 MG TABLET PO SCH (09:41)
[2019-09-02] MEDS: SODIUM BICARBONATE 650 MG TABLET PO SCH ×2 (09:41→21:36)
[2019-09-02] MEDS: MEMANTINE 10 MG TABLET PO SCH (09:41)
[2019-09-02] MEDS: INSULIN LISPRO 100 UNIT/ML SUBCUT SCH ×4 (09:41→21:37)
[2019-09-02] MEDS: ASPIRIN 325 MG TABLET PO SCH (09:41)
[2019-09-02] MEDS: amLODIPine 10 MG TABLET PO SCH (09:41)
[2019-09-02] MEDS: COENZYME Q10 100 MG CAPSULE PO SCH (09:41)
[2019-09-02] MEDS: TAMSULOSIN 0.4 MG CAPSULE PO SCH (09:41)
[2019-09-02] MEDS: WARFARIN 5 MG TABLET PO SCH (17:49)
[2019-09-02] MEDS: DULoxetine 20 MG CAPSULE PO SCH (21:36)
[2019-09-02] MEDS: DONEPEZIL 10 MG TABLET PO SCH (21:36)
[2019-09-02] MEDS: ATORVASTATIN 40 MG TABLET PO SCH (21:36)
[2019-09-02] MEDS: INSULIN GLARGINE 100 UNIT/ML SUBCUT SCH (21:37)
[2019-09-03] MEDS: HEPARIN DRIP 25,000 UNITS/500 ML PREMIX IV SCH ×2 (01:20→22:00)
[2019-09-03 05:50] LABS: Basophils % 0.5 % (0.0-0.8); Eosinophils # 0.1 10*3/uL (0.0-0.87); Eosinophils % 1.2 % (0.00-10.9); Hematocrit 23.4 VOL% (42.0-52.0); Hemoglobin 7.3 GM/DL (14.0-18.0); Immature Granulocytes % 1.4 %; Immature Granulocytes Absolute 0.11 #; Lymphocytes # 0.7 10*3/uL (1.4-4.0); Lymphocytes % 9.2 % (21.2-54.2); Mean Corpuscular HGB Conc 31.2 GM/DL (32-36); Mean Platelet Volume 9.1 FL (9.6-12.0); Monocytes % 12.7 % (1.7-12.7); Platelet Count 253 T/CUMM (130-400); Red Blood Count 2.66 MC/CUMM (3.8-5.5); Red Cell Distribution Width 15.5 % (9.3-17.3); White Blood Count 7.7 T/CUMM (4-12)
[2019-09-03 06:03] LABS: Calcium 8.6 MG/DL (8.5-10.1); Osmolality,Calculated 275.2 MOS/KG (273-304)
[2019-09-03 06:07] LABS: INR 1.1; PT Patient Result 12.4 SECS (9.6-12.2)
[2019-09-03] MEDS: COENZYME Q10 100 MG CAPSULE PO SCH (08:45)
[2019-09-03] MEDS: CETIRIZINE 10 MG TABLET PO SCH (08:45)
[2019-09-03] MEDS: MEMANTINE 10 MG TABLET PO SCH (08:45)
[2019-09-03] MEDS: TAMSULOSIN 0.4 MG CAPSULE PO SCH (08:46)
[2019-09-03] MEDS: INSULIN LISPRO 100 UNIT/ML SUBCUT SCH ×4 (08:46→22:20)
[2019-09-03] MEDS: ASPIRIN 325 MG TABLET PO SCH (08:46)
[2019-09-03] MEDS: SODIUM BICARBONATE 650 MG TABLET PO SCH ×2 (08:46→22:19)
[2019-09-03] MEDS ORDERED: DEXAMETHASONE 4 MG TABLET PO SCH ×2 (09:00)
[2019-09-03] MEDS ORDERED: HEPARIN 10,000 UNIT/10 ML VIAL IV SCH (13:30)
[2019-09-03] MEDS: POTASSIUM CHLORIDE 20 MEQ TABLET PO PRN ×2 (13:36→22:19)
[2019-09-03] MEDS: amLODIPine 10 MG TABLET PO SCH (13:36)
[2019-09-03] MEDS: WARFARIN 5 MG TABLET PO SCH (17:51)
[2019-09-03] MEDS: ceFAZolin 2,000 MG in SYRINGE 1 EACH IV SCH (17:51)
[2019-09-03] MEDS ORDERED: ceFAZolin 1,000 MG VIAL IV SCH (20:08)
[2019-09-03] MEDS: DULoxetine 20 MG CAPSULE PO SCH (22:19)
[2019-09-03] MEDS: DONEPEZIL 10 MG TABLET PO SCH (22:19)
[2019-09-03] MEDS: ATORVASTATIN 40 MG TABLET PO SCH (22:19)
[2019-09-03] MEDS: INSULIN GLARGINE 100 UNIT/ML SUBCUT SCH (22:20)
[2019-09-04 02:23] LABS: Basophils % 0.1 % (0.0-0.8); Hematocrit 30.7 VOL% (42.0-52.0); Hemoglobin 10.2 GM/DL (14.0-18.0); Immature Granulocytes % 1.9 %; Immature Granulocytes Absolute 0.17 #; Lymphocytes # 0.5 10*3/uL (1.4-4.0); Lymphocytes % 5.9 % (21.2-54.2); Mean Corpuscular HGB Conc 33.2 GM/DL (32-36); Mean Corpuscular Volume 85.8 FL (87-102); Mean Platelet Volume 8.9 FL (9.6-12.0); Monocytes % 5.9 % (1.7-12.7); Neutrophils % 86.2 % (38.7-73.9); Platelet Count 264 T/CUMM (130-400); Red Blood Count 3.58 MC/CUMM (3.8-5.5); Red Cell Distribution Width 15.1 % (9.3-17.3); White Blood Count 8.8 T/CUMM (4-12)
[2019-09-04 02:33] LABS: INR 1.5; PT Patient Result 16.4 SECS (9.6-12.2)
[2019-09-04 02:38] LABS: Calcium 8.9 MG/DL (8.5-10.1); Osmolality,Calculated 278.1 MOS/KG (273-304)
[2019-09-04] MEDS: SODIUM BICARBONATE 650 MG TABLET PO SCH ×2 (08:58→21:03)
[2019-09-04] MEDS: ASPIRIN 325 MG TABLET PO SCH (08:58)
[2019-09-04] MEDS: COENZYME Q10 100 MG CAPSULE PO SCH (08:59)
[2019-09-04] MEDS: TAMSULOSIN 0.4 MG CAPSULE PO SCH (08:59)
[2019-09-04] MEDS: amLODIPine 10 MG TABLET PO SCH (08:59)
[2019-09-04] MEDS: MEMANTINE 10 MG TABLET PO SCH (08:59)
[2019-09-04] MEDS: CETIRIZINE 10 MG TABLET PO SCH (08:59)
[2019-09-04] MEDS: INSULIN LISPRO 100 UNIT/ML SUBCUT SCH ×4 (09:00→21:03)
[2019-09-04] MEDS: WARFARIN 5 MG TABLET PO SCH (17:26)
[2019-09-04] MEDS: INSULIN GLARGINE 100 UNIT/ML SUBCUT SCH (21:03)
[2019-09-04] MEDS: ATORVASTATIN 40 MG TABLET PO SCH (21:03)
[2019-09-04] MEDS: DULoxetine 20 MG CAPSULE PO SCH (21:03)
[2019-09-04] MEDS: DONEPEZIL 10 MG TABLET PO SCH (21:03)
[2019-09-04] MEDS: HEPARIN DRIP 25,000 UNITS/500 ML PREMIX IV SCH (21:05)
[2019-09-05] MEDS: HEPARIN DRIP 25,000 UNITS/500 ML PREMIX IV SCH (04:15)
[2019-09-05 05:39] LABS: Basophils % 0.2 % (0.0-0.8); Eosinophils % 0.4 % (0.00-10.9); Hematocrit 32.1 VOL% (42.0-52.0); Immature Granulocytes % 1.3 %; Immature Granulocytes Absolute 0.14 #; Lymphocytes # 0.6 10*3/uL (1.4-4.0); Lymphocytes % 5.4 % (21.2-54.2); Mean Corpuscular HGB Conc 31.2 GM/DL (32-36); Mean Corpuscular Volume 89.2 FL (87-102); Monocytes % 12.6 % (1.7-12.7); Neutrophils % 80.1 % (38.7-73.9); Platelet Count 271 T/CUMM (130-400); Red Cell Distribution Width 15.3 % (9.3-17.3); White Blood Count 10.7 T/CUMM (4-12)
[2019-09-05 05:53] LABS: INR 2.1
[2019-09-05 06:00] LABS: PT Patient Result 23.2 SECS (9.6-12.2)
[2019-09-05 06:17] LABS: Calcium 8.8 MG/DL (8.5-10.1); Osmolality,Calculated 283.8 MOS/KG (273-304)
[2019-09-05 08:29] VITALS: BP 142/78
[2019-09-05] MEDS: INSULIN LISPRO 100 UNIT/ML SUBCUT SCH ×3 (08:49→16:26)
[2019-09-05] MEDS: COENZYME Q10 100 MG CAPSULE PO SCH (13:02)
[2019-09-05] MEDS: CETIRIZINE 10 MG TABLET PO SCH (13:02)
[2019-09-05] MEDS: TAMSULOSIN 0.4 MG CAPSULE PO SCH (13:02)
[2019-09-05] MEDS: SODIUM BICARBONATE 650 MG TABLET PO SCH (13:02)
[2019-09-05] MEDS: MEMANTINE 10 MG TABLET PO SCH (13:02)
[2019-09-05] MEDS: amLODIPine 10 MG TABLET PO SCH (13:02)
[2019-09-05] MEDS: ASPIRIN 325 MG TABLET PO SCH (13:02)
[2019-09-05] MEDS: ceFAZolin 2,000 MG in SYRINGE 1 EACH IV SCH (16:26)
[2019-09-07] MEDS ORDERED: ceFAZolin 3,000 MG in SYRINGE 1 EACH IV SCH (17:00)
== END 2019-09-05 17:05 | DRG 175 ==
LOC: EDBD → EDUNIT# → N.EDINP 15:16 → N.ED 15:16 → N.TELEN 22:19
PROVIDERS: ADMIT Internal Medicine; ATTEND Internal Medicine